=== PATIENT | female | born 1930 | race American Indian/Alaskan Native ===

== ENCOUNTER 2016-05-26 08:01 | Emergency (ER) | payer MEDICARE ==
[2016-05-26] MEDS ORDERED: NORCO 5/325 ONE (09:48)
[2016-05-26] MEDS ORDERED: NORCO 5/325 PO ONE (09:52)
--- NOTE | 2016-05-26 10:35 | XRay Report ---
Left hip 2 views: History: Left hip pain status post fall. Findings: Total hip replacement noted. The acetabula and the femoral component is anatomic and in alignment. No evidence of acute fracture. Impression: No evidence of acute fracture or dislocation.
[2016-05-26 12:03] VITALS: BP 163/59
[2016-05-26 13:17] LABS: Basophils % (Auto) 0.3 % (0.0-1.8); Eosinophils % (Auto) 1.1 % (0.0-4.3); Hematocrit 35.7 % (30.3-42.9); Hemoglobin 11.6 gm/dl (10.1-14.3); Mean Corpuscular HGB Conc 33 % (30-34); Mean Corpuscular Hemoglobin 31 pg (28-32); Mean Corpuscular Volume 94 fl (79-97); Platelet Count 256 K/mm3 (140-440); Red Blood Count 3.81 M/mm3 (3.65-5.03); Red Cell Distribution Width 17.1 % (13.2-15.2); White Blood Count 13.7 K/mm3 (4.5-11.0)
--- NOTE | 2016-05-26 13:23 | Emergency Department Report ---
ED General Adult HPI - General Chief complaint: Fall Stated complaint: LEFT HIP INJURY/DUE TO FALL Time Seen by Provider: 05/26/16 12:00 Source: patient, family Mode of arrival: Wheelchair Limitations: Physical Limitation - History of Present Illness Initial comments: The patient stated that she attempted to get out of bed this morning and "my left leg gave out". She complains of discomfort in the lateral aspect of her left hip. She has had previous hip replacement on that side. She does not complain of any other injury. She denies any prodromal symptoms. She was able to ambulate after the fall. -: Gradual Location: left, lower extremity Quality: dull Consistency: now resolved (improved after analgesia here) Improves with: none Worsens with: none Associated Symptoms: denies other symptoms - Related Data Home Medications Medication Instructions Recorded Confirmed Last Taken Ferrous Sulfate [Feosol] 325 mg PO QDAY 05/26/16 05/26/16 Unknown Hyoscyamine Sulfate [Hyoscyamine 0.125 mg PO Q4H PRN 05/26/16 05/26/16 Unknown Rapdis 0.125 mg] Lisinopril [Zestril] 5 mg PO QDAY 05/26/16 05/26/16 Unknown Memantine HCl [Namenda Xr] 28 mg PO DAILY 05/26/16 05/26/16 Unknown Promethazine [Phenergan TAB] 25 mg PO Q6HR PRN 05/26/16 05/26/16 Unknown predniSONE [Deltasone] 5 mg PO QDAY 05/26/16 05/26/16 Unknown Previous Rx's Medication Instructions Recorded Last Taken Type Omeprazole [PriLOSEC] 40 mg PO QDAY #30 capsule. 08/18/15 Unknown Rx Allergies Allergy/AdvReac Type Severity Reaction Status Date / Time No Known Allergies Allergy Verified 05/26/16 08:23 ED Review of Systems ROS: Stated complaint: LEFT HIP INJURY/DUE TO FALL Other details as noted in HPI Comment: All other systems reviewed and negative Constitutional: denies: chills, fever Respiratory: denies: cough, shortness of breath, wheezing Cardiovascular: denies: chest pain, palpitations Gastrointestinal: denies: abdominal pain, nausea, diarrhea ED Past Medical Hx - Past Medical History Hx Hypertension: Yes Hx GERD: Yes Hx Arthritis: Yes Additional medical history: ALZHEIMERS (BEGINNING). GLAUCOMA - Surgical History Hx Cholecystectomy: Yes Hx Appendectomy: Yes Additional Surgical History: HYSTERECTOMY. STOMACH SURGERY FOR ULCERS. LEFT THIGH SURGERY. LEFT HIP REPLACEMENT - Social History Smoking Status: Never Smoker Substance Use Type: None - Medications Home Medications: Home Medications Medication Instructions Recorded Confirmed Last Taken Type Omeprazole [PriLOSEC] 40 mg PO QDAY #30 capsule. 08/18/15 05/26/16 Unknown Rx Ferrous Sulfate [Feosol] 325 mg PO QDAY 05/26/16 05/26/16 Unknown History Hyoscyamine Sulfate [Hyoscyamine 0.125 mg PO Q4H PRN 05/26/16 05/26/16 Unknown History Rapdis 0.125 mg] Lisinopril [Zestril] 5 mg PO QDAY 05/26/16 05/26/16 Unknown History Memantine HCl [Namenda Xr] 28 mg PO DAILY 05/26/16 05/26/16 Unknown History Promethazine [Phenergan TAB] 25 mg PO Q6HR PRN 05/26/16 05/26/16 Unknown History predniSONE [Deltasone] 5 mg PO QDAY 05/26/16 05/26/16 Unknown History ED Physical Exam - General Limitations: Physical Limitation General appearance: alert, in no apparent distress - Head Head exam: Present: atraumatic, normocephalic - Eye Eye exam: Present: normal appearance. Absent: scleral icterus - ENT ENT exam: Present: normal exam, mucous membranes moist - Neck Neck exam: Present: normal inspection. Absent: tenderness, meningismus - Respiratory Respiratory exam: Present: normal lung sounds bilaterally. Absent: respiratory distress - Cardiovascular Cardiovascular Exam: Present: regular rate, normal rhythm. Absent: systolic murmur, diastolic murmur, rubs, gallop - GI/Abdominal GI/Abdominal exam: Present: soft, normal bowel sounds. Absent: distended, tenderness, guarding, rebound, rigid - Extremities Exam Extremities exam: Present: normal inspection, full ROM (range of motion of the left hip is actually fairly good and nontender. There is no deformity. There is no tenderness over the pelvis as well.), normal capillary refill. Absent: joint swelling, calf tenderness - Back Exam Back exam: Present: normal inspection. Absent: CVA tenderness (R), CVA tenderness (L), muscle spasm, paraspinal tenderness, vertebral tenderness - Neurological Exam Neurological exam: Present: alert, oriented X3, CN II-XII intact. Absent: motor sensory deficit - Psychiatric Psychiatric exam: Present: normal affect, normal mood - Skin Skin exam: Present: warm, dry, intact, normal color. Absent: rash ED Course Vital Signs 05/26/16 05/26/16 05/26/16 08:14 09:53 10:53 Temperature 97.6 F Pulse Rate 60 Respiratory 19 20 19 Rate Blood Pressure 168/71 Blood Pressure [Right] O2 Sat by Pulse 97 Oximetry 05/26/16 12:03 Temperature Pulse Rate 54 L Respiratory 18 Rate Blood Pressure Blood Pressure 163/59 [Right] O2 Sat by Pulse 100 Oximetry ED Medical Decision Making - Lab Data Result diagrams: 05/26/16 12:44 05/26/16 12:44 Laboratory Results - last 24 hr 05/26/16 12:44 WBC 13.7 H RBC 3.81 Hgb 11.6 Hct 35.7 MCV 94 MCH 31 MCHC 33 RDW 17.1 H Plt Count 256 Lymph % (Auto) 17.6 [place] % (Auto) 6.6 Eos % (Auto) 1.1 Baso % (Auto) 0.3 Lymph # 2.4 [place] # 0.9 H Eos # 0.1 Baso # 0.0 Seg Neutrophils % 74.4 H Seg Neutrophils # 10.2 H Laboratory Results - last 24 hr 05/26/16 05/26/16 05/26/16 12:44 12:44 13:08 WBC 13.7 H RBC 3.81 Hgb 11.6 Hct 35.7 MCV 94 MCH 31 MCHC 33 RDW 17.1 H Plt Count 256 Lymph % (Auto) 17.6 [place] % (Auto) 6.6 Eos % (Auto) 1.1 Baso % (Auto) 0.3 Lymph # 2.4 [place] # 0.9 H Eos # 0.1 Baso # 0.0 Seg Neutrophils % 74.4 H Seg Neutrophils # 10.2 H Sodium 139 Potassium 3.6 Chloride 103.6 Carbon Dioxide 24 Anion Gap 15 BUN 13 Creatinine 0.5 L Estimated GFR > 60 BUN/Creatinine Ratio 26.00 Glucose 75 Calcium 8.5 Urine Color Yellow Urine Turbidity Clear Urine pH 6.0 Ur Specific [place] 1.015 Urine Protein <15 mg/dl Urine Glucose (UA) Negative Urine Ketones Negative Urine Blood Negative Urine Nitrite Negative Urine Bilirubin Negative Urine Urobilinogen < 2.0 Ur Leukocyte Esterase Negative Urine WBC (Auto) 2.0 Urine RBC (Auto) 1.0 U Epithel Cells (Auto) < 1.0 Urine Mucus Few Critical care attestation.: If time is entered above; I have spent that time in minutes in the direct care of this critically ill patient, excluding procedure time. ED Disposition Clinical Impression: Contusion of hip, left Qualifiers: Encounter type: initial encounter Qualified Code(s): S70.02XA - Contusion of left hip, initial encounter S/P hip replacement Qualifiers: Laterality: left Qualified Code(s): Z96.642 - Presence of left artificial hip joint Disposition: DISCHARGED TO HOME OR SELFCARE Is pt being admited?: No Does the pt Need Aspirin: No Condition: Stable Instructions: Contusion in Adults (ED) Additional Instructions: Follow-up with orthopedist. Return any acute change or problem. Referrals: CHESTER CRUZ MD [Primary Care Provider] - 3-5 Days KAYLA PAVON MD [Staff Physician] - 3-5 Days Time of Disposition: 14:24
[2016-05-26 13:27] LABS: Anion Gap 15 mmol/L; Blood Urea Nitrogen 13 mg/dL (7-17); Calcium 8.5 mg/dL (8.4-10.2); Carbon Dioxide 24 mmol/L (22-30); Chloride 103.6 mmol/L (98-107); Glucose 75 mg/dL (65-100); Potassium 3.6 mmol/L (3.6-5.0); Sodium 139 mmol/L (137-145)
[2016-05-26 13:32] LABS: Bilirubin,Urine Negative (Negative); Blood,Urine Negative (Negative); Ketones,Urine Negative (Negative); Leukocyte Esterase,Urine Negative (Negative); Nitrite,Urine Negative (Negative); Protein,Urine <15 mg/dL mg/dL (Negative); Urobilinogen,Urine < 2.0 mg/dL (<2.0)
[2016-05-26 13:33] LABS: Mucus,Urine Few /HPF
== END 2016-05-26 13:13 | disposition home or self-care (01) ==
LOC: ED 08:01
DX: S70.02XA Contusion of left hip, initial encounter (principal); I10 Essential (primary) hypertension; K21.9 Gastro-esophageal reflux disease without esophagitis; M19.90 Unspecified osteoarthritis, unspecified site; G30.9 Alzheimer's disease, unspecified; F02.80 Dementia in other diseases classified elsewhere, unspecified severity, without behavioral disturbance, psychotic disturbance, mood disturbance, and anxiety; F05 Delirium due to known physiological condition; Z96.642 Presence of left artificial hip joint; W19.XXXA Unspecified fall, initial encounter; Y93.89 Activity, other specified; Y99.9 Unspecified external cause status; Y92.89 Other specified places as the place of occurrence of the external cause
CPT/HCPCS: 36415; 80048; 81001; 85025

== ENCOUNTER 2018-04-16 14:58 | Inpatient (IN) | payer MEDICARE ==
--- NOTE | 2018-04-16 16:27 | Emergency Department Report ---
ED Dizziness HPI - General Chief Complaint: Syncope Stated Complaint: LOW HEART RATE Time Seen by Provider: 04/16/18 15:50 Source: family, EMS Mode of arrival: Wheelchair Limitations: No Limitations - History of Present Illness Initial Comments: Patient is a 88-year-old female with history of hypertension and dementia. Patient was sent from her primary care physician office for evaluation of dizziness and knee onset bradycardia. The patient daughter stated that patient was doing well until 3 to 4 days ago when she started having dizziness and some syncopal episodes. Patient also complaining of headache. There is stated that her blood pressure was high also. Patient denied any focal weakness, numbness or tingling sensation. Patient denied any chest pain or shortness of breath. Patient had a negative cardiac cath in 2016. MD Complaint: dizziness, lightheadedness -: days(s) Timing: gradual onset Description: sense of movement, lightheadedness History of Trauma: No Severity: moderate Improves With: remaining still Worsens With: movement Associated Symptoms: denies other symptoms - Related Data Home Medications Medication Instructions Recorded Confirmed Last Taken Ferrous Sulfate [Feosol] 325 mg PO QDAY 05/26/16 05/26/16 Unknown Hyoscyamine Sulfate [Hyoscyamine 0.125 mg PO Q4H PRN 05/26/16 05/26/16 Unknown Rapdis 0.125 mg] Lisinopril [Zestril] 5 mg PO QDAY 05/26/16 05/26/16 Unknown Memantine HCl [Namenda Xr] 28 mg PO DAILY 05/26/16 05/26/16 Unknown Promethazine [Phenergan TAB] 25 mg PO Q6HR PRN 05/26/16 05/26/16 Unknown predniSONE [Deltasone] 5 mg PO QDAY 05/26/16 05/26/16 Unknown Previous Rx's Medication Instructions Recorded Last Taken Type Omeprazole [PriLOSEC] 40 mg PO QDAY #30 capsule. 08/18/15 Unknown Rx traMADol [Ultram] 50 mg PO Q8HR PRN #10 tablet 05/26/16 Unknown Rx Allergies Allergy/AdvReac Type Severity Reaction Status Date / Time No Known Allergies Allergy Verified 05/26/16 08:23 ED Review of Systems ROS: Stated complaint: LOW HEART RATE Other details as noted in HPI Comment: All other systems reviewed and negative Constitutional: denies: chills, fever Respiratory: denies: cough, orthopnea, shortness of breath, SOB with exertion Cardiovascular: denies: chest pain, palpitations Gastrointestinal: denies: abdominal pain, nausea, vomiting Neurological: vertigo. denies: headache, weakness ED Past Medical Hx - Past Medical History Previous Medical History?: Yes Hx Hypertension: Yes Hx GERD: Yes Hx Arthritis: Yes Additional medical history: ALZHEIMERS (BEGINNING). GLAUCOMA - Surgical History Past Surgical History?: Yes Hx Cholecystectomy: Yes Hx Appendectomy: Yes Additional Surgical History: HYSTERECTOMY. STOMACH SURGERY FOR ULCERS - COLOSTOMY. LEFT THIGH SURGERY. LEFT HIP REPLACEMENT - Social History Smoking Status: Never Smoker Substance Use Type: None - Medications Home Medications: Home Medications Medication Instructions Recorded Confirmed Last Taken Type Omeprazole [PriLOSEC] 40 mg PO QDAY #30 capsule. 08/18/15 05/26/16 Unknown Rx Ferrous Sulfate [Feosol] 325 mg PO QDAY 05/26/16 05/26/16 Unknown History Hyoscyamine Sulfate [Hyoscyamine 0.125 mg PO Q4H PRN 05/26/16 05/26/16 Unknown History Rapdis 0.125 mg] Lisinopril [Zestril] 5 mg PO QDAY 05/26/16 05/26/16 Unknown History Memantine HCl [Namenda Xr] 28 mg PO DAILY 05/26/16 05/26/16 Unknown History Promethazine [Phenergan TAB] 25 mg PO Q6HR PRN 05/26/16 05/26/16 Unknown History predniSONE [Deltasone] 5 mg PO QDAY 05/26/16 05/26/16 Unknown History traMADol [Ultram] 50 mg PO Q8HR PRN #10 tablet 05/26/16 Unknown Rx ED Physical Exam - General Limitations: No Limitations General appearance: alert, in no apparent distress - Head Head exam: Present: atraumatic, normocephalic, normal inspection - Eye Eye exam: Present: normal appearance - ENT ENT exam: Present: normal exam, normal orophraynx, mucous membranes moist - Neck Neck exam: Present: normal inspection, full ROM. Absent: tenderness, meningismus, lymphadenopathy, thyromegaly - Respiratory Respiratory exam: Present: normal lung sounds bilaterally. Absent: respiratory distress, wheezes, rales, rhonchi, chest wall tenderness, accessory muscle use, decreased breath sounds, prolonged expiratory - Cardiovascular Cardiovascular Exam: Present: regular rate, normal rhythm, normal heart sounds - GI/Abdominal GI/Abdominal exam: Present: soft, normal bowel sounds. Absent: distended, tenderness, guarding, rebound, rigid, organomegaly, mass, bruit, pulsatile mass, hernia - Extremities Exam Extremities exam: Present: normal inspection, full ROM, normal capillary refill. Absent: pedal edema, calf tenderness - Back Exam Back exam: Present: normal inspection, full ROM. Absent: tenderness, CVA tenderness (R), CVA tenderness (L), muscle spasm, paraspinal tenderness, vertebral tenderness - Neurological Exam Neurological exam: Present: alert, oriented X3, CN II-XII intact - Psychiatric Psychiatric exam: Present: normal mood - Skin Skin exam: Present: warm, intact ED Course Vital Signs 04/16/18 04/16/18 04/16/18 15:12 15:18 15:30 Pulse Rate 43 L 43 L 42 L Respiratory 17 16 10 L Rate Blood Pressure 186/69 186/69 O2 Sat by Pulse 100 100 Oximetry 04/16/18 04/16/18 04/16/18 15:46 16:00 16:15 Pulse Rate 43 L Respiratory 13 Rate Blood Pressure 163/88 163/88 170/59 O2 Sat by Pulse 100 100 98 Oximetry ED Medical Decision Making - Lab Data Result diagrams: 04/16/18 18:26 04/16/18 18:26 - EKG Data -: EKG Interpreted by Pa EKG shows normal: sinus rhythm Rate: bradycardia - EKG Data 04/16/18 16:36 Sinus bradycardia, no ST elevation. - Radiology Data Radiology results: report reviewed Referring Physician: MICHAEL FAN Patient Name: JAYSHREE KRISHNA Date of : 1930 Sex: Female Report Date: 2018-04-16 Report Status: Finalized Findings [facility] [address] [place] [address] Cat Scan Report Signed Patient: JAYSHREE KRISHNA MR#: [id number] : 1930 Acct:[id number] Age/Sex: 88 / F ADM Date: 04/16/18 Loc: ED Attending Dr: Ordering Physician: MICHAEL FAN Date of Service: 04/16/18 Procedure(s): CT head/brain wo con Accession Number(s): [id number] cc: MICHAEL FAN FINAL REPORT EXAM: CT HEAD/BRAIN WO CON HISTORY: Syncope TECHNIQUE: 2.5 millimeter axial images from the skullbase to the vertex. Comparison: Head CT dated March 21, 2015 FINDINGS: There is no evidence of an acute intracranial process, intracranial hemorrhage or mass effect. Ventricular size is concordant with the degree of atrophy. There is prominence of the extra-axial spaces anterior to the frontal lobes bilaterally similar in appearance to the previous study. There is atherosclerotic vascular calcification of the internal carotid arteries and vertebral arteries bilaterally at the skullbase. The visualized portions of the orbits, paranasal and mastoid sinuses are notable for a nonspherical shape of the globes bilaterally. The bony structures are unremarkable. There is no evidence of fracture. IMPRESSION: 1. No evidence of an acute intracranial process, intracranial hemorrhage or mass effect. No significant change since previous study dated March 21, 2015. Transcribed By: ED Dictated By: ZOEY GODWIN MD Electronically Authenticated By: ZOEY GODWIN MD Signed Date/Time: 04/16/18 175 Referring Physician: MICHAEL FAN Patient Name: JAYSHREE KRISHNA Date of : 1930 Sex: Female Report Date: 2018-04-16 Report Status: Finalized Findings [address] [address] XRay Report Signed Patient: JAYSHREE KRISHNA MR#: [id number] : 1930 Acct:[id number] Age/Sex: 88 / F ADM Date: 04/16/18 Loc: ED Attending Dr: Ordering Physician: MICHAEL FAN Date of Service: 04/16/18 Procedure(s): XR chest 1V ap Accession Number(s): [id number] cc: MICHAEL FAN Fluoro Time In Minutes: FINAL REPORT EXAM: XR CHEST 1V AP HISTORY: syncope TECHNIQUE: Frontal portable view of the chest Comparison: None FINDINGS: There is no evidence of infiltrate, pneumothorax or pleural fluid collection. The cardiac silhouette is enlarged. The thoracic aorta is tortuous with atherosclerotic vascular calcification. There are calcified lymph nodes in the right hilum consistent with chronic granulomatous change. Surgical clips are demonstrated in the region the gastroesophageal junction. The bony structures are notable for marked degenerative change of the shoulder joints bilaterally. IMPRESSION: 1. No evidence of an acute pulmonary process. 2. Enlarged cardiac silhouette. 3. Tortuosity thoracic aorta with atherosclerotic vascular calcification. 4. Postsurgical change in the region of the gastroesophageal junction. 5. Marked degenerative change shoulder joints bilaterally. Transcribed By: ED Dictated By: ZOEY GODWIN MD Electronically Authenticated By: ZOEY GODWIN MD Signed Date/Time: 04/16/181745 DD/ 43 TD/TT: 04/16/181743 DD/ 49 TD/TT: 04/16/181749 - Medical Decision Making Patient is a 88-year-old female with history of hypertension and dementia. Patient was sent from her primary care physician office for evaluation of dizziness and knee onset bradycardia. The patient daughter stated that patient was doing well until 3 to 4 days ago when she started having dizziness and some syncopal episodes. Patient also complaining of headache. There is stated that her blood pressure was high also. Patient denied any focal weakness, numbness or tingling sensation. Patient denied any chest pain or shortness of breath. Patient had a negative cardiac cath in 2016. Patient did not experience any dizziness in the emergency room. EKG showed sinus bradycardia with a rate of 43. Patient CT brain is negative for acute finding. First set of troponin is negative. I discussed the patient with distribution superintendent , was advised to admit the patient to the hospital and he will follow-up with the patient. I discussed the patient is Dr. Mendoza, he agreed to admit the patient to medical service and advised to bridge the patient to telemetry. Critical Care Time: Yes Critical care time in (mins) excluding proc time.: 30 Critical care attestation.: If time is entered above; I have spent that time in minutes in the direct care of this critically ill patient, excluding procedure time. ED Disposition Clinical Impression: Dizziness, Symptomatic bradycardia Disposition: -09 OP ADMIT IP TO THIS HOSP Is pt being admited?: Yes Condition: Stable Referrals: PRIMARY CARE, [Referring] - 3-5 Days
--- NOTE | 2018-04-16 17:46 | XRay Report ---
FINAL REPORT EXAM: XR CHEST 1V AP HISTORY: syncope TECHNIQUE: Frontal portable view of the chest Comparison: None FINDINGS: There is no evidence of infiltrate, pneumothorax or pleural fluid collection. The cardiac silhouette is enlarged. The thoracic aorta is tortuous with atherosclerotic vascular calcification. There are calcified lymph nodes in the right hilum consistent with chronic granulomatous change. Surgical clips are demonstrated in the region the gastroesophageal junction. The bony structures are notable for marked degenerative change of the shoulder joints bilaterally. IMPRESSION: 1. No evidence of an acute pulmonary process. 2. Enlarged cardiac silhouette. 3. Tortuosity thoracic aorta with atherosclerotic vascular calcification. 4. Postsurgical change in the region of the gastroesophageal junction. 5. Marked degenerative change shoulder joints bilaterally.
--- NOTE | 2018-04-16 17:51 | Cat Scan Report ---
FINAL REPORT EXAM: CT HEAD/BRAIN WO CON HISTORY: Syncope TECHNIQUE: 2.5 millimeter axial images from the skullbase to the vertex. Comparison: Head CT dated March 21, 2015 FINDINGS: There is no evidence of an acute intracranial process, intracranial hemorrhage or mass effect. Ventricular size is concordant with the degree of atrophy. There is prominence of the extra-axial spaces anterior to the frontal lobes bilaterally similar in ap pearance to the previous study. There is atherosclerotic vascular calcification of the internal carotid arteries and vertebral arteri es bilaterally at the skullbase. The visualized portions of the orbits, paranasal and mastoid sinuses are notable for a nonspherical s hape of the globes bilaterally. The bony structures are unremarkable. There is no evidence of fracture. IMPRESSION: 1. No evidence of an acute intracranial process, intracranial hemorrhage or mass effect. No significant change since previous study dated March 21, 2015.
[2018-04-16 18:39] LABS: Basophils # (Auto) 0.2 K/mm3 (0.0-0.1); Basophils % (Auto) 1.8 % (0.0-1.8); Eosinophils # (Auto) 0.2 K/mm3 (0.0-0.4); Eosinophils % (Auto) 2.2 % (0.0-4.3); Hematocrit 38.6 % (30.3-42.9); Hemoglobin 12.7 gm/dl (10.1-14.3); Lymphocytes # (Auto) 1.8 K/mm3 (1.2-5.4); Mean Corpuscular HGB Conc 33 % (30-34); Mean Corpuscular Volume 99 fl (79-97); Monocytes # (Auto) 0.8 K/mm3 (0.0-0.8); Monocytes % (Auto) 9.7 % (0.0-7.3); Platelet Count 172 K/mm3 (140-440); Red Blood Count 3.92 M/mm3 (3.65-5.03); Red Cell Distribution Width 14.1 % (13.2-15.2)
[2018-04-16 18:47] LABS: INR 0.99 (0.87-1.13)
[2018-04-16 18:48] LABS: Partial Thromboplastin Time 28.6 Sec. (24.2-36.6)
[2018-04-16 18:55] LABS: BUN/Creatinine Ratio 16; Blood Urea Nitrogen 16 mg/dL (7-17); Calcium 9.7 mg/dL (8.4-10.2); Hemolysis Index 6
[2018-04-16 18:58] LABS: Alanine Aminotransferase 55 units/L (7-56); Albumin 3.8 g/dL (3.9-5)
[2018-04-16 19:03] LABS: Bilirubin,Direct < 0.2 mg/dL (0-0.2)
--- NOTE | 2018-04-16 22:00 | History and Physical Report ---
History of Present Illness Date of examination: 04/16/18 Date of admission: 04/16/18 19:26 Chief complaint: Feeling weak dizzy and passing out for the last 4 days History of present illness: 88-year-old -Serbian female with history of hypertension and dementia and being treated for bradycardia comes in for dizziness for 4 days. Patient has been feeling weak and dizzy and passing out. Patient is seeing [facility]--Dr. SWANSON for management of bradycardia. Patient was given the option of pacemaker but the patient did not want it. Patient has been doing well until 4 days ago. Since 4 days patient has been feeling dizzy and weak and passing out. No chest pain. Past Medical History Previous Medical History?: Yes Hypertension: Yes GERD: Yes Arthritis: Yes Additional medical history: ALZHEIMERS (BEGINNING). GLAUCOMA Surgical History Past Surgical History?: Yes Hx Cholecystectomy: Yes Hx Appendectomy: Yes Additional Surgical History: HYSTERECTOMY. STOMACH SURGERY FOR ULCERS - COLOSTOMY. LEFT THIGH SURGERY. LEFT HIP REPLACEMENT Social History Smoking Status: Never Smoker Substance Use Type: None Family history Hypertension - Medications Home Medications: Home Medications Medication Instructions Recorded Confirmed Last Taken Type Omeprazole [PriLOSEC] 40 mg PO QDAY #30 capsule. 08/18/15 05/26/16 Unknown Rx Ferrous Sulfate [Feosol] 325 mg PO QDAY 05/26/16 05/26/16 Unknown History Hyoscyamine Sulfate [Hyoscyamine 0.125 mg PO Q4H PRN 05/26/16 05/26/16 Unknown History Rapdis 0.125 mg] Lisinopril [Zestril] 5 mg PO QDAY 05/26/16 05/26/16 Unknown History Memantine HCl [Namenda Xr] 28 mg PO DAILY 05/26/16 05/26/16 Unknown History Promethazine [Phenergan TAB] 25 mg PO Q6HR PRN 05/26/16 05/26/16 Unknown History predniSONE [Deltasone] 5 mg PO QDAY 05/26/16 05/26/16 Unknown History traMADol [Ultram] 50 mg PO Q8HR PRN #10 tablet 05/26/16 Unknown Rx Review of systems ROS: Stated complaint: LOW HEART RATE Other details as noted in HPI Comment: All other systems reviewed and negative Constitutional: denies: chills, fever Respiratory: denies: cough, orthopnea, shortness of breath, SOB with exertion Cardiovascular: denies: chest pain, palpitations Gastrointestinal: denies: abdominal pain, nausea, vomiting Neurological: vertigo. denies: headache, weakness Medications and Allergies Allergies Allergy/AdvReac Type Severity Reaction Status Date / Time No Known Allergies Allergy Verified 05/26/16 08:23 Home Medications Medication Instructions Recorded Confirmed Last Taken Type Omeprazole [PriLOSEC] 40 mg PO QDAY #30 capsule. 08/18/15 05/26/16 Unknown Rx Ferrous Sulfate [Feosol] 325 mg PO QDAY 05/26/16 05/26/16 Unknown History Hyoscyamine Sulfate [Hyoscyamine 0.125 mg PO Q4H PRN 05/26/16 05/26/16 Unknown History Rapdis 0.125 mg] Lisinopril [Zestril] 5 mg PO QDAY 05/26/16 05/26/16 Unknown History Memantine HCl [Namenda Xr] 28 mg PO DAILY 05/26/16 05/26/16 Unknown History Promethazine [Phenergan TAB] 25 mg PO Q6HR PRN 05/26/16 05/26/16 Unknown History predniSONE [Deltasone] 5 mg PO QDAY 05/26/16 05/26/16 Unknown History traMADol [Ultram] 50 mg PO Q8HR PRN #10 tablet 05/26/16 Unknown Rx Exam - Constitutional Vitals: Temp Pulse Resp BP Pulse Ox 97.6 F 44 L 16 168/64 96 04/16/18 20:52 04/16/18 20:52 04/16/18 20:52 04/16/18 20:52 04/16/18 20:52 General appearance: Present: no acute distress, well-nourished - EENT Eyes: Present: PERRL ENT: hearing intact, clear oral mucosa - Neck Neck: Present: supple, normal ROM - Respiratory Respiratory effort: normal Respiratory: bilateral: CTA - Cardiovascular Heart rate: 43 Rhythm: regular Heart Sounds: Present: S1 & S2. Absent: rub, click - Extremities Extremities: no ischemia, pulses intact, pulses symmetrical, No edema Peripheral Pulses: within normal limits - Abdominal General gastrointestinal: Present: soft, non-tender, non-distended, normal bowel sounds Female genitourinary: Present: normal - Integumentary Integumentary: Present: clear, warm, dry - Musculoskeletal Musculoskeletal: gait normal, strength equal bilaterally - Psychiatric Psychiatric: appropriate mood/affect, intact judgment & insight - Neurologic Neurologic: CNII-XII intact, moves all extremities - Allied Health Allied health notes reviewed: nursing, case management Results - Labs CBC & Chem 7: 04/16/18 18:26 04/16/18 18: Labs: Laboratory Last Values WBC 8.4 K/mm3 (4.5-11.0) 04/16/18 18: RBC 3.92 M/mm3 (3.65-5.03) 04/16/18 18: Hgb 12.7 gm/dl (10.1-14.3) 04/16/18 18: Hct 38.6 % (30.3-42.9) 04/16/18 18: MCV 99 fl (79-97) H 04/16/18 18: MCH 32 pg (28-32) 04/16/18 18: MCHC 33 % (30-34) 04/16/18 18: RDW 14.1 % (13.2-15.2) 04/16/18 18: Plt Count 172 K/mm3 (140-440) 04/16/18 18: Lymph % (Auto) 21.0 % (13.4-35.0) 04/16/18 18: [place] % (Auto) 9.7 % (0.0-7.3) H 04/16/18 18: Eos % (Auto) 2.2 % (0.0-4.3) 04/16/18 18: Baso % (Auto) 1.8 % (0.0-1.8) 04/16/18 18: Lymph # 1.8 K/mm3 (1.2-5.4) 04/16/18 18: [place] # 0.8 K/mm3 (0.0-0.8) 04/16/18 18: Eos # 0.2 K/mm3 (0.0-0.4) 04/16/18 18: Baso # 0.2 K/mm3 (0.0-0.1) H 04/16/18 18: Seg Neutrophils % 65.3 % (40.0-70.0) 04/16/18 18:26 Seg Neutrophils # 5.5 K/mm3 (1.8-7.7) 04/16/18 18:26 PT 13.7 Sec. (12.2-14.9) 04/16/18 18:26 INR 0.99 (0.87-1.13) 04/16/18 18:26 APTT 28.6 Sec. (24.2-36.6) 04/16/18 18:26 Sodium 144 mmol/L (137-145) 04/16/18 18:26 Potassium 4.1 mmol/L (3.6-5.0) 04/16/18 18:26 Chloride 108.1 mmol/L (98-107) H 04/16/18 18:26 Carbon Dioxide 22 mmol/L (22-30) 04/16/18 18:26 Anion Gap 18 mmol/L 04/16/18 18:26 BUN 16 mg/dL (7-17) 04/16/18 18:26 Creatinine 1.0 mg/dL (0.7-1.2) 04/16/18 18:26 Estimated GFR > 60 ml/min 04/16/18 18:26 BUN/Creatinine Ratio 16 % 04/16/18 18:26 Glucose 90 mg/dL (65-100) 04/16/18 18:26 Calcium 9.7 mg/dL (8.4-10.2) 04/16/18 18:26 Magnesium 1.70 mg/dL (1.7-2.3) 04/16/18 18:26 Total Bilirubin 0.30 mg/dL (0.1-1.2) 04/16/18 18:26 Direct Bilirubin < 0.2 mg/dL (0-0.2) 04/16/18 18:26 Indirect Bilirubin 0.1 mg/dL 04/16/18 18:26 AST 41 units/L (5-40) H 04/16/18 18:26 ALT 55 units/L (7-56) 04/16/18 18:26 Alkaline Phosphatase 46 units/L (35-129) 04/16/18 18:26 Troponin T < 0.010 ng/mL (0.00-0.029) 04/16/18 18:26 Total Protein 6.9 g/dL (6.3-8.2) 04/16/18 18:26 Albumin 3.8 g/dL (3.9-5) L 04/16/18 18:26 Albumin/Globulin Ratio 1.2 % 04/16/18 18:26 Short CBC 04/16/18 Range/Units 18:26 WBC 8.4 (4.5-11.0) K/mm3 Hgb 12.7 (10.1-14.3) gm/dl Hct 38.6 (30.3-42.9) % Plt Count 172 (140-440) K/mm3 BMP 04/16/18 18:26 Sodium 144 Potassium 4.1 Chloride 108.1 H Carbon Dioxide 22 BUN 16 Creatinine 1.0 Glucose 90 Calcium 9.7 Cardiac Enzymes 04/16/18 Range/Units 18:26 Troponin T < 0.010 (0.00-0.029) ng/mL Liver Function 04/16/18 Range/Units 18:26 Total Bilirubin 0.30 (0.1-1.2) mg/dL Direct Bilirubin < 0.2 (0-0.2) mg/dL AST 41 H (5-40) units/L ALT 55 (7-56) units/L Alkaline Phosphatase 46 (35-129) units/L Albumin 3.8 L (3.9-5) g/dL - Imaging and Cardiology EKG: report reviewed (sinus bradycardia heart rate of 43 per minute) Assessment and Plan Advance Directives: Yes (full code) VTE prophylaxis?: Chemical Plan of care discussed with patient/family: Yes - Patient Problems (1) Symptomatic bradycardia Current Visit: Yes Status: Acute Plan to address problem: Patient may need pacemaker and defibrillator We will consult [facility] Patient follows with them IV fluids for now (2) Hypertension Current Visit: Yes Status: Chronic Qualifiers: Hypertension type: essential hypertension Qualified Code(s): I10 - Essential (primary) hypertension Plan to address problem: Continue lisinopril No beta blockers Check TSH (3) Dementia Current Visit: Yes Status: Chronic Qualifiers: Dementia type: vascular dementia Plan to address problem: Continue Namenda (4) GERD (gastroesophageal reflux disease) Current Visit: Yes Status: Chronic Qualifiers: Esophagitis presence: without esophagitis Qualified Code(s): K21.9 - Gastro-esophageal reflux disease without esophagitis Plan to address problem: Continue PPIs (5) DVT prophylaxis Current Visit: Yes Status: Acute Plan to address problem: Patient on Lovenox and GI prophylaxis in the form of EPS
[2018-04-16] MEDS ORDERED: PERCOCET 5/325 PO PRN (22:05)
[2018-04-16] MEDS ORDERED: SODIUM CHLORIDE FLUSH SYRINGE 10 ML IV PRN (22:05)
[2018-04-16] MEDS ORDERED: DILAUDID IV PRN (22:05)
[2018-04-16] MEDS ORDERED: ZOFRAN IV PRN (22:05)
[2018-04-17 01:17] LABS: Chol/HDL Ratio 2.04 %
[2018-04-17] MEDS: NACL 0.9% 1000 ML 1,000 ML IV SCH ×2 (05:05→18:31)
[2018-04-17 06:29] LABS: Basophils % (Auto) 0.6 % (0.0-1.8); Eosinophils # (Auto) 0.1 K/mm3 (0.0-0.4); Eosinophils % (Auto) 1.5 % (0.0-4.3); Hematocrit 38.3 % (30.3-42.9); Hemoglobin 12.4 gm/dl (10.1-14.3); Lymphocytes # (Auto) 1.3 K/mm3 (1.2-5.4); Lymphocytes % (Auto) 16.8 % (13.4-35.0); Mean Corpuscular HGB Conc 32 % (30-34); Mean Corpuscular Volume 99 fl (79-97); Monocytes # (Auto) 0.5 K/mm3 (0.0-0.8); Monocytes % (Auto) 6.9 % (0.0-7.3); Platelet Count 169 K/mm3 (140-440); Red Blood Count 3.88 M/mm3 (3.65-5.03); Red Cell Distribution Width 14.2 % (13.2-15.2)
[2018-04-17 06:55] LABS: Alanine Aminotransferase 48 units/L (7-56); Albumin 3.4 g/dL (3.9-5); BUN/Creatinine Ratio 23; Blood Urea Nitrogen 18 mg/dL (7-17); Calcium 9.3 mg/dL (8.4-10.2); Hemolysis Index 42
[2018-04-17] MEDS: PROTONIX PO SCH (09:58)
[2018-04-17] MEDS: ZESTRIL PO SCH (09:58)
[2018-04-17] MEDS: TYLENOL PO PRN (09:59)
[2018-04-17] MEDS: SODIUM CHLORIDE FLUSH SYRINGE 10 ML IV SCH ×2 (10:05→21:35)
[2018-04-17] MEDS: NAMENDA PO SCH ×2 (10:05→21:35)
--- NOTE | 2018-04-17 12:00 | Consultation ---
Addendum entered and electronically signed by ROMARIO HER MD 04/17/18 14:05: We'll add Procardia XL 30 mg daily for blood pressure management. On discharge, she may benefit from extended outpatient event monitor. Original Note: History of Present Illness Consult date: 04/17/18 Consult reason: bradycardia History of present illness: Patient is an 88 year old woman who was sent from her primary care office with uncontrolled hypertension, weakness and marked sinus bradycardia. No acute intracranial abnormalities by head CT scan. Chest x-ray is negative. On presentation, a repeat ECG is sinus bradycardia with a right bundle branch block, rate 43. Home medications does not list any AV yair blocking agents. Currently sinus rhythm, rate 86 on telemetry. There are no pauses seen. TSH is normal. Cardiac consultation was requested. Patient is known to [facility] and is followed routinely with Dr Lipscomb. She has a history of hypertension, nonischemic cardiomyopathy, resolving by follow up echocardiogram six months ago that reports a well preserved left ventricular ejection fraction. In addition, she has a history of underlying sick sinus syndrome that's managed conservatively. Medications and Allergies Allergies Allergy/AdvReac Type Severity Reaction Status Date / Time No Known Allergies Allergy Verified 05/26/16 08:23 Home Medications Medication Instructions Recorded Confirmed Last Taken Type Omeprazole [PriLOSEC] 40 mg PO QDAY #30 capsule. 08/18/15 04/17/18 04/16/18 Rx Ferrous Sulfate [Feosol] 325 mg PO QDAY 05/26/16 04/17/18 04/16/18 History Hyoscyamine Sulfate [Hyoscyamine 0.125 mg PO Q4H PRN 05/26/16 04/17/18 Unknown History Rapdis 0.125 mg] Lisinopril [Zestril] 5 mg PO QDAY 05/26/16 04/17/18 04/16/18 History Memantine HCl [Namenda Xr] 28 mg PO DAILY 05/26/16 04/17/18 04/16/18 History Promethazine [Phenergan TAB] 25 mg PO Q6HR PRN 05/26/16 04/17/18 Unknown History predniSONE [Deltasone] 5 mg PO QDAY 05/26/16 04/17/18 04/15/18 History traMADol [Ultram] 50 mg PO Q8HR PRN #10 tablet 05/26/16 04/17/18 Unknown Rx Active Meds: Active Medications Acetaminophen (Tylenol) 650 mg PO Q4H PRN PRN Reason: Pain MILD(1-3)/Fever >100.5/MCNAMARA Last Admin: 04/17/18 09:59 Dose: 650 mg Documented by: Hydromorphone HCl (Dilaudid) 0.5 mg IV Q3H PRN PRN Reason: Pain , Severe (7-10) Sodium Chloride (Nacl 0.9% 1000 Ml) 1,000 mls @ 75 mls/hr IV DIRECT [facility] Last Admin: 04/17/18 05:05 Dose: 75 mls/hr Documented by: Lisinopril (Zestril) 5 mg PO QDAY [facility] Last Admin: 04/17/18 09:58 Dose: 5 mg Documented by: Memantine (Namenda) 10 mg PO Q12HR [facility] Last Admin: 04/17/18 10:05 Dose: 10 mg Documented by: Ondansetron HCl (Zofran) 4 mg IV Q8H PRN PRN Reason: Nausea And Vomiting Oxycodone/Acetaminophen (Percocet 5/325) 1 tab PO Q6H PRN PRN Reason: Pain, Moderate (4-6) Pantoprazole Sodium (Protonix) 40 mg PO QDAY [facility] Last Admin: 04/17/18 09:58 Dose: 40 mg Documented by: Sodium Chloride (Sodium Chloride Flush Syringe 10 Ml) 10 ml IV BID [facility] Last Admin: 04/17/18 10:05 Dose: 10 ml Documented by: Sodium Chloride (Sodium Chloride Flush Syringe 10 Ml) 10 ml IV PRN PRN PRN Reason: LINE FLUSH Physical Examination Vital Signs Pulse Resp BP Pulse Ox 43 L 17 186/69 100 04/16/18 15:12 04/16/18 15:12 04/16/18 15:12 04/16/18 15:12 General appearance: no acute distress HEENT: Positive: PERRL Cardiac: Positive: Reg Rate and Rhythm Lungs: Positive: Decreased Breath Sounds Neuro: Positive: Weakness Extremities: Absent: edema Results 04/17/18 06:10 04/17/18 06:10 Cardiac Enzymes 04/16/18 04/17/18 Range/Units 18:26 06:10 AST 41 H 34 (5-40) units/L Coagulation 04/16/18 Range/Units 18:26 PT 13.7 (12.2-14.9) Sec. INR 0.99 (0.87-1.13) APTT 28.6 (24.2-36.6) Sec. Lipids 04/16/18 Range/Units 22:32 Triglycerides 101 (2-149) mg/dL Cholesterol 202 H (50-199) mg/dL HDL Cholesterol 99 H (40-59) mg/dL Cholesterol/HDL Ratio 2.04 % CBC 04/16/18 04/17/18 Range/Units 18:26 06:10 WBC 8.4 8.0 (4.5-11.0) K/mm3 RBC 3.92 3.88 (3.65-5.03) M/mm3 Hgb 12.7 12.4 (10.1-14.3) gm/dl Hct 38.6 38.3 (30.3-42.9) % Plt Count 172 169 (140-440) K/mm3 Lymph # 1.8 1.3 (1.2-5.4) K/mm3 [place] # 0.8 0.5 (0.0-0.8) K/mm3 Eos # 0.2 0.1 (0.0-0.4) K/mm3 Baso # 0.2 H 0.0 (0.0-0.1) K/mm3 Comprehensive Metabolic Panel 04/16/18 04/16/18 04/17/18 Range/Units 18:26 18:26 06:10 Sodium 144 143 (137-145) mmol/L Potassium 4.1 4.0 (3.6-5.0) mmol/L Chloride 108.1 H 110.7 H (98-107) mmol/L Carbon Dioxide 22 21 L (22-30) mmol/L BUN 16 18 H (7-17) mg/dL Creatinine 1.0 0.8 (0.7-1.2) mg/dL Glucose 90 96 (65-100) mg/dL Calcium 9.7 9.3 (8.4-10.2) mg/dL Direct Bilirubin < 0.2 (0-0.2) mg/dL Indirect Bilirubin 0.1 mg/dL AST 41 H 34 (5-40) units/L ALT 55 48 (7-56) units/L Alkaline Phosphatase 46 43 (35-129) units/L Total Protein 6.9 6.2 L (6.3-8.2) g/dL Albumin 3.8 L 3.4 L (3.9-5) g/dL Assessment and Plan Hypertension Underlying SSS TSH is normal Hx of Nonischemic cardiomyopathy, resolving echocardiogram 08/2017 reports a well preserved left ventricular ejection fraction 55%.
--- NOTE | 2018-04-17 14:38 | Progress Note ---
Assessment and Plan Assessment and plan: Bradycardia - Secondary to sick sinus syndrome - Cardiology is following Hypertension - on lisinopril, cardiology recommended to add Procardia at discharge Cardiomyopathy - Her last ejection fraction was 50-55% - No symptoms of CHF Dementia - Continue home medications DVT prophylaxis - On Lovenox Disposition - Continue patient care, monitor on telemetry History Interval history: Patient was seen and evaluated this morning, patient was alert but demented. No chest pain or shortness of breath. Hospitalist Physical - Physical exam Narrative exam: Not in cardiopulmonary distress. The patient appeared well nourished and normally developed. Vital signs as documented. Head exam is unremarkable. No scleral icterus . Neck is without jugular venous distension, thyromegaly, or carotid bruits. Lungs are clear to auscultation. Cardiac exam reveals regular rate and Rhythm. Abdominal exam reveals normal bowel sounds Extremities are nonedematous and both femoral and pedal pulses are normal. 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 - Constitutional Vitals: Temp Pulse Resp BP Pulse Ox 98.7 F 58 L 18 166/72 99 04/17/18 08:11 04/17/18 08:11 04/17/18 08:11 04/17/18 12:00 04/17/18 08:11 General appearance: Present: no acute distress Results - Labs CBC & Chem 7: 04/17/18 06:10 04/17/18 06:10 Labs: Laboratory Last Values WBC 8.0 K/mm3 (4.5-11.0) 04/17/18 06:10 RBC 3.88 M/mm3 (3.65-5.03) 04/17/18 06:10 Hgb 12.4 gm/dl (10.1-14.3) 04/17/18 06:10 Hct 38.3 % (30.3-42.9) 04/17/18 06:10 MCV 99 fl (79-97) H 04/17/18 06:10 MCH 32 pg (28-32) 04/17/18 06:10 MCHC 32 % (30-34) 04/17/18 06:10 RDW 14.2 % (13.2-15.2) 04/17/18 06:10 Plt Count 169 K/mm3 (140-440) 04/17/18 06:10 Lymph % (Auto) 16.8 % (13.4-35.0) 04/17/18 06:10 [place] % (Auto) 6.9 % (0.0-7.3) 04/17/18 06:10 Eos % (Auto) 1.5 % (0.0-4.3) 04/17/18 06:10 Baso % (Auto) 0.6 % (0.0-1.8) 04/17/18 06:10 Lymph # 1.3 K/mm3 (1.2-5.4) 04/17/18 06:10 [place] # 0.5 K/mm3 (0.0-0.8) 04/17/18 06:10 Eos # 0.1 K/mm3 (0.0-0.4) 04/17/18 06:10 Baso # 0.0 K/mm3 (0.0-0.1) 04/17/18 06:10 Seg Neutrophils % 74.2 % (40.0-70.0) H 04/17/18 06:10 Seg Neutrophils # 5.9 K/mm3 (1.8-7.7) 04/17/18 06:10 PT 13.7 Sec. (12.2-14.9) 04/16/18 18:26 INR 0.99 (0.87-1.13) 04/16/18 18:26 APTT 28.6 Sec. (24.2-36.6) 04/16/18 18:26 Sodium 143 mmol/L (137-145) 04/17/18 06:10 Potassium 4.0 mmol/L (3.6-5.0) 04/17/18 06:10 Chloride 110.7 mmol/L (98-107) H 04/17/18 06:10 Carbon Dioxide 21 mmol/L (22-30) L 04/17/18 06:10 Anion Gap 15 mmol/L 04/17/18 06:10 BUN 18 mg/dL (7-17) H 04/17/18 06:10 Creatinine 0.8 mg/dL (0.7-1.2) 04/17/18 06:10 Estimated GFR > 60 ml/min 04/17/18 06:10 BUN/Creatinine Ratio 23 % 04/17/18 06:10 Glucose 96 mg/dL (65-100) 04/17/18 06:10 Hemoglobin A1c 5.6 % (4-6) 04/16/18 22:32 Calcium 9.3 mg/dL (8.4-10.2) 04/17/18 06:10 Magnesium 1.70 mg/dL (1.7-2.3) 04/16/18 18:26 Total Bilirubin 0.30 mg/dL (0.1-1.2) 04/17/18 06:10 Direct Bilirubin < 0.2 mg/dL (0-0.2) 04/16/18 18:26 Indirect Bilirubin 0.1 mg/dL 04/16/18 18:26 AST 34 units/L (5-40) 04/17/18 06:10 ALT 48 units/L (7-56) 04/17/18 06:10 Alkaline Phosphatase 43 units/L (35-129) 04/17/18 06:10 Troponin T < 0.010 ng/mL (0.00-0.029) 04/16/18 18:26 Total Protein 6.2 g/dL (6.3-8.2) L 04/17/18 06:10 Albumin 3.4 g/dL (3.9-5) L 04/17/18 06:10 Albumin/Globulin Ratio 1.2 % 04/17/18 06:10 Triglycerides 101 mg/dL (2-149) 04/16/18 22:32 Cholesterol 202 mg/dL (50-199) H 04/16/18 22:32 LDL Cholesterol Direct 92 mg/dL (50-130) 04/16/18 22:32 HDL Cholesterol 99 mg/dL (40-59) H 04/16/18 22:32 Cholesterol/HDL Ratio 2.04 % 04/16/18 22:32 TSH 3.900 mlU/mL (0.270-4.200) 04/17/18 10:02 Free T4 1.21 ng/dL (0.76-1.46) 04/17/18 10:02
[2018-04-17] MEDS: APRESOLINE PO SCH ×2 (15:50→21:35)
[2018-04-18] MEDS: NACL 0.9% 1000 ML 1,000 ML IV SCH (06:26)
[2018-04-18] MEDS: APRESOLINE PO SCH ×3 (08:23→20:38)
[2018-04-18] MEDS: NAMENDA PO SCH ×2 (09:15→21:36)
[2018-04-18] MEDS: PROTONIX PO SCH (09:15)
[2018-04-18] MEDS: LOVENOX SUB-Q SCH (09:15)
[2018-04-18] MEDS: ZESTRIL PO SCH (09:15)
[2018-04-18] MEDS: SODIUM CHLORIDE FLUSH SYRINGE 10 ML IV SCH ×2 (09:16→21:40)
[2018-04-18] MEDS: TYLENOL PO PRN ×2 (11:08→21:36)
--- NOTE | 2018-04-18 12:53 | Progress Note ---
Addendum entered and electronically signed by GEENA HUERTA MD 04/18/18 12:54: Chest pain this morning ECG showing no ischemic changes Troponin pending CT chest - post surgical changes in the region of the GE junction Cardiac murmur on exam Echo 08/2017 - normal LVEF, sclerotic aortic valve, mild MR Sinus bradycardia RBBB History of resolving NICMP Dementia Recommendations: Lengthy discussion with daughter and caregiver They would like to proceed with stress test in am to rule out ischemic heart disease Continue protonix therapy Original Note: Assessment and Plan Hypertension Underlying SSS currently in sinus rhythm. No events on telemetry overnight TSH is normal Chest pain Hx of Nonischemic cardiomyopathy, resolving echocardiogram 08/2017 reports a well preserved left ventricular ejection fraction 55%. [facility] 2016: no significant coronary artery disease. Dementia Plan: Pre-discharge persantine thallium stress test. This will be done tomorrow morning. Subjective Date of service: 04/18/18 Interval history: Patient complains of chest pain and nausea with some vomiting this morning. Stat ECG obtained and reviewed. No acute ischemic changes. Objective Vital Signs Temp Pulse Resp BP Pulse Ox 04/18/18 09:15 165/80 04/18/18 06:00 82 04/18/18 04:02 98.3 F 84 14 142/58 95 04/17/18 23:57 98.2 F 89 12 125/57 95 04/17/18 22:00 100 H 04/17/18 19:51 98.8 F 99 H 14 106/41 100 04/17/18 16:49 99.0 F 71 20 147/56 100 04/17/18 14:00 47 L - Physical Examination General: No Apparent Distress HEENT: Positive: PERRL Cardiac: Positive: Reg Rate and Rhythm Lungs: Positive: Decreased Breath Sounds Neuro: Positive: Weakness Extremities: Absent: edema
--- NOTE | 2018-04-18 15:06 | Progress Note ---
Assessment and Plan Assessment and plan: Bradycardia, chest pain - Secondary to sick sinus syndrome - Cardiology consulted and will do ischemic workup, troponin is negative Hypertension - on lisinopril, cardiology recommended to add Procardia at discharge Cardiomyopathy - Her last ejection fraction was 50-55% - No symptoms of CHF Dementia - Continue home medications DVT prophylaxis - On Lovenox Disposition - Continue patient care, monitor on telemetry, will have stress test tomorrow. History Interval history: Patient was seen and evaluated this morning, patient was alert but demented. patient has chest pain, nausea and vomiting in the morning. Hospitalist Physical - Physical exam Narrative exam: Not in cardiopulmonary distress. The patient appeared well nourished and normally developed. Vital signs as documented. Head exam is unremarkable. No scleral icterus . Neck is without jugular venous distension, thyromegaly, or carotid bruits. Lungs are clear to auscultation. Cardiac exam reveals regular rate and Rhythm. Abdominal exam reveals normal bowel sounds Extremities are nonedematous and both femoral and pedal pulses are normal. 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 - Constitutional Vitals: Temp Pulse Resp BP Pulse Ox 98.3 F 82 14 165/80 95 04/18/18 04:02 04/18/18 06:00 04/18/18 04:02 04/18/18 09:15 04/18/18 04:02 General appearance: Present: no acute distress Results - Labs CBC & Chem 7: 04/17/18 06:10 04/17/18 06:10 Labs: Laboratory Last Values WBC 8.0 K/mm3 (4.5-11.0) 04/17/18 06:10 RBC 3.88 M/mm3 (3.65-5.03) 04/17/18 06:10 Hgb 12.4 gm/dl (10.1-14.3) 04/17/18 06:10 Hct 38.3 % (30.3-42.9) 04/17/18 06:10 MCV 99 fl (79-97) H 04/17/18 06:10 MCH 32 pg (28-32) 04/17/18 06:10 MCHC 32 % (30-34) 04/17/18 06:10 RDW 14.2 % (13.2-15.2) 04/17/18 06:10 Plt Count 169 K/mm3 (140-440) 04/17/18 06:10 Lymph % (Auto) 16.8 % (13.4-35.0) 04/17/18 06:10 [place] % (Auto) 6.9 % (0.0-7.3) 04/17/18 06:10 Eos % (Auto) 1.5 % (0.0-4.3) 04/17/18 06:10 Baso % (Auto) 0.6 % (0.0-1.8) 04/17/18 06:10 Lymph # 1.3 K/mm3 (1.2-5.4) 04/17/18 06:10 [place] # 0.5 K/mm3 (0.0-0.8) 04/17/18 06:10 Eos # 0.1 K/mm3 (0.0-0.4) 04/17/18 06:10 Baso # 0.0 K/mm3 (0.0-0.1) 04/17/18 06:10 Seg Neutrophils % 74.2 % (40.0-70.0) H 04/17/18 06:10 Seg Neutrophils # 5.9 K/mm3 (1.8-7.7) 04/17/18 06:10 PT 13.7 Sec. (12.2-14.9) 04/16/18 18:26 INR 0.99 (0.87-1.13) 04/16/18 18:26 APTT 28.6 Sec. (24.2-36.6) 04/16/18 18:26 Sodium 143 mmol/L (137-145) 04/17/18 06:10 Potassium 4.0 mmol/L (3.6-5.0) 04/17/18 06:10 Chloride 110.7 mmol/L (98-107) H 04/17/18 06:10 Carbon Dioxide 21 mmol/L (22-30) L 04/17/18 06:10 Anion Gap 15 mmol/L 04/17/18 06:10 BUN 18 mg/dL (7-17) H 04/17/18 06:10 Creatinine 0.8 mg/dL (0.7-1.2) 04/17/18 06:10 Estimated GFR > 60 ml/min 04/17/18 06:10 BUN/Creatinine Ratio 23 % 04/17/18 06:10 Glucose 96 mg/dL (65-100) 04/17/18 06:10 Hemoglobin A1c 5.6 % (4-6) 04/16/18 22:32 Calcium 9.3 mg/dL (8.4-10.2) 04/17/18 06:10 Magnesium 1.70 mg/dL (1.7-2.3) 04/16/18 18:26 Total Bilirubin 0.30 mg/dL (0.1-1.2) 04/17/18 06:10 Direct Bilirubin < 0.2 mg/dL (0-0.2) 04/16/18 18:26 Indirect Bilirubin 0.1 mg/dL 04/16/18 18:26 AST 34 units/L (5-40) 04/17/18 06:10 ALT 48 units/L (7-56) 04/17/18 06:10 Alkaline Phosphatase 43 units/L (35-129) 04/17/18 06:10 Troponin T < 0.010 ng/mL (0.00-0.029) 04/16/18 18:26 Total Protein 6.2 g/dL (6.3-8.2) L 04/17/18 06:10 Albumin 3.4 g/dL (3.9-5) L 04/17/18 06:10 Albumin/Globulin Ratio 1.2 % 04/17/18 06:10 Triglycerides 101 mg/dL (2-149) 04/16/18 22:32 Cholesterol 202 mg/dL (50-199) H 04/16/18 22:32 LDL Cholesterol Direct 92 mg/dL (50-130) 04/16/18 22:32 HDL Cholesterol 99 mg/dL (40-59) H 04/16/18 22:32 Cholesterol/HDL Ratio 2.04 % 04/16/18 22:32 TSH 3.900 mlU/mL (0.270-4.200) 04/17/18 10:02 Free T4 1.21 ng/dL (0.76-1.46) 04/17/18 10:02
[2018-04-18] MEDS ORDERED: REGLAN IV PRN (16:06)
[2018-04-18] MEDS: ZOFRAN IV PRN (19:23)
[2018-04-19] MEDS: TYLENOL PO PRN ×2 (04:23→20:57)
[2018-04-19] MEDS ORDERED: LEXISCAN IV ONE ×2 (08:11→08:34)
--- NOTE | 2018-04-19 09:06 | XRay Report ---
FINAL REPORT EXAM: XR CHEST 1V AP HISTORY: fever COMPARISON: 04/16/2018 TECHNIQUE: Frontal and lateral views of the chest. FINDINGS: Stable cardiomegaly. The lungs are clear without focal consolidation. There is no pleural effusion or pneumothorax. There is no acute soft tissue or osseous abnormality. IMPRESSION: No acute cardiopulmonary disease.
[2018-04-19] MEDS: ROCEPHIN/NS 2 GM/100 ML 2 GM/100 ML BAG IV SCH (13:47)
[2018-04-19] MEDS: APRESOLINE PO SCH ×3 (13:48→20:57)
[2018-04-19] MEDS: NAMENDA PO SCH ×2 (13:48→21:04)
[2018-04-19] MEDS: ZESTRIL PO SCH (13:48)
[2018-04-19] MEDS: PROTONIX PO SCH (13:48)
[2018-04-19] MEDS: LOVENOX SUB-Q SCH (13:49)
[2018-04-19] MEDS: SODIUM CHLORIDE FLUSH SYRINGE 10 ML IV SCH ×2 (13:49→21:05)
--- NOTE | 2018-04-19 15:22 | Progress Note ---
Assessment and Plan Assessment and plan: Bradycardia, chest pain - Secondary to sick sinus syndrome - Cardiology consulted and will do ischemic workup, troponin is negative Hypertension - on lisinopril, cardiology recommended to add Procardia at discharge Cardiomyopathy - Her last ejection fraction was 50-55% - No symptoms of CHF Dementia - Continue home medications Patient has episodes of fever, nausea and vomiting - CXR was normal - ordered blood and urine culture - Start emperically on rocephin DVT prophylaxis - On Lovenox Disposition - Continue patient care History Interval history: Patient was seen and evaluated this morning, patient was alert but demented. patient had episodes of fever overnight, had nausea and vomiting yesterday. Hospitalist Physical - Physical exam Narrative exam: Not in cardiopulmonary distress. The patient appeared well nourished and normally developed. Vital signs as documented. Head exam is unremarkable. No scleral icterus . Neck is without jugular venous distension, thyromegaly, or carotid bruits. Lungs are clear to auscultation. Cardiac exam reveals regular rate and Rhythm. Abdominal exam reveals normal bowel sounds Extremities are nonedematous and both femoral and pedal pulses are normal. 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 - Constitutional Vitals: Temp Pulse Resp BP Pulse Ox 99.9 F H 95 H 14 129/52 97 04/19/18 08:25 04/19/18 13:58 04/19/18 08:25 04/19/18 13:58 04/19/18 13:58 General appearance: Present: no acute distress Results - Labs CBC & Chem 7: 04/17/18 06:10 04/17/18 06:10 Labs: Laboratory Last Values WBC 8.0 K/mm3 (4.5-11.0) 04/17/18 06:10 RBC 3.88 M/mm3 (3.65-5.03) 04/17/18 06:10 Hgb 12.4 gm/dl (10.1-14.3) 04/17/18 06:10 Hct 38.3 % (30.3-42.9) 04/17/18 06:10 MCV 99 fl (79-97) H 04/17/18 06:10 MCH 32 pg (28-32) 04/17/18 06:10 MCHC 32 % (30-34) 04/17/18 06:10 RDW 14.2 % (13.2-15.2) 04/17/18 06:10 Plt Count 169 K/mm3 (140-440) 04/17/18 06:10 Lymph % (Auto) 16.8 % (13.4-35.0) 04/17/18 06:10 [place] % (Auto) 6.9 % (0.0-7.3) 04/17/18 06:10 Eos % (Auto) 1.5 % (0.0-4.3) 04/17/18 06:10 Baso % (Auto) 0.6 % (0.0-1.8) 04/17/18 06:10 Lymph # 1.3 K/mm3 (1.2-5.4) 04/17/18 06:10 [place] # 0.5 K/mm3 (0.0-0.8) 04/17/18 06:10 Eos # 0.1 K/mm3 (0.0-0.4) 04/17/18 06:10 Baso # 0.0 K/mm3 (0.0-0.1) 04/17/18 06:10 Seg Neutrophils % 74.2 % (40.0-70.0) H 04/17/18 06:10 Seg Neutrophils # 5.9 K/mm3 (1.8-7.7) 04/17/18 06:10 PT 13.7 Sec. (12.2-14.9) 04/16/18 18:26 INR 0.99 (0.87-1.13) 04/16/18 18:26 APTT 28.6 Sec. (24.2-36.6) 04/16/18 18:26 Sodium 143 mmol/L (137-145) 04/17/18 06:10 Potassium 4.0 mmol/L (3.6-5.0) 04/17/18 06:10 Chloride 110.7 mmol/L (98-107) H 04/17/18 06:10 Carbon Dioxide 21 mmol/L (22-30) L 04/17/18 06:10 Anion Gap 15 mmol/L 04/17/18 06:10 BUN 18 mg/dL (7-17) H 04/17/18 06:10 Creatinine 0.8 mg/dL (0.7-1.2) 04/17/18 06:10 Estimated GFR > 60 ml/min 04/17/18 06:10 BUN/Creatinine Ratio 23 % 04/17/18 06:10 Glucose 96 mg/dL (65-100) 04/17/18 06:10 Hemoglobin A1c 5.6 % (4-6) 04/16/18 22:32 Calcium 9.3 mg/dL (8.4-10.2) 04/17/18 06:10 Magnesium 1.70 mg/dL (1.7-2.3) 04/16/18 18:26 Total Bilirubin 0.30 mg/dL (0.1-1.2) 04/17/18 06:10 Direct Bilirubin < 0.2 mg/dL (0-0.2) 04/16/18 18:26 Indirect Bilirubin 0.1 mg/dL 04/16/18 18:26 AST 34 units/L (5-40) 04/17/18 06:10 ALT 48 units/L (7-56) 04/17/18 06:10 Alkaline Phosphatase 43 units/L (35-129) 04/17/18 06:10 Troponin T < 0.010 ng/mL (0.00-0.029) 04/16/18 18:26 C-Reactive Protein < 0.03 mg/dL (0.00-1.30) 04/19/18 09:28 Total Protein 6.2 g/dL (6.3-8.2) L 04/17/18 06:10 Albumin 3.4 g/dL (3.9-5) L 04/17/18 06:10 Albumin/Globulin Ratio 1.2 % 04/17/18 06:10 Triglycerides 101 mg/dL (2-149) 04/16/18 22:32 Cholesterol 202 mg/dL (50-199) H 04/16/18 22:32 LDL Cholesterol Direct 92 mg/dL (50-130) 04/16/18 22:32 HDL Cholesterol 99 mg/dL (40-59) H 04/16/18 22:32 Cholesterol/HDL Ratio 2.04 % 04/16/18 22:32 TSH 3.900 mlU/mL (0.270-4.200) 04/17/18 10:02 Free T4 1.21 ng/dL (0.76-1.46) 04/17/18 10:02
--- NOTE | 2018-04-19 16:31 | Progress Note ---
Assessment and Plan Chest pain ECG showing no ischemic changes Troponin - negative CT chest - post surgical changes in the region of the GE junction Cardiac cath 06/2015 - non-obstructive CAD Cardiac murmur on exam Echo 08/2017 - normal LVEF, sclerotic aortic valve, mild MR Sinus bradycardia RBBB History of resolving NICMP Dementia Recommendations: Lengthy discussion with daughter and caregiver They would like to proceed with stress test to rule out ischemic heart disease Lexiscan could not be completed today due to lack if IV access. We will have to reschedule for saturday Subjective Date of service: 04/19/18 Principal diagnosis: Chest Pain Interval history: Patient is comfortable this morning Lexiscan could not be completed because patient lost IV access and stress lab staff were not able to regain it Objective Vital Signs Temp Pulse Resp BP Pulse Ox 04/19/18 13:58 95 H 129/52 97 04/19/18 11:40 157/61 04/19/18 08:25 99.9 F H 93 H 14 125/57 96 04/19/18 06:12 100.3 F H 04/19/18 05:39 102 H 04/19/18 04:20 102.8 F H 106 H 18 156/69 97 04/18/18 23:22 100.1 F H 105 H 16 118/48 95 04/18/18 20:02 103 H 04/18/18 19:58 100.2 F H 104 H 14 158/57 97 04/18/18 17:26 99.6 F 101 H 16 138/64 97 - Physical Examination General: No Apparent Distress HEENT: Positive: PERRL Neck: Positive: neck supple Cardiac: Positive: Reg Rate and Rhythm Lungs: Positive: Normal Exam Neuro: Positive: Weakness Extremities: Absent: edema - Imaging and Cardiology EKG: report reviewed (sinus bradycardia heart rate of 43 per minute)
[2018-04-19 19:10] LABS: Bilirubin,Urine NEG (Negative); Blood,Urine NEG (Negative); Color,Urine Yellow (Yellow); Mucus,Urine FEW /HPF; Protein,Urine <15 mg/dL mg/dL (Negative); RBC,Urine < 1.0 /HPF (0.0-6.0); Urobilinogen,Urine < 2.0 mg/dL (<2.0); WBC,Urine < 1.0 /HPF (0.0-6.0)
[2018-04-19] MEDS: LATANOPROST 0.005% OU SCH (20:58)
[2018-04-19] MEDS: COMBIGAN 0.2-0.5% OU SCH (21:05)
[2018-04-20 06:57] LABS: Basophils # (Auto) 0.1 K/mm3 (0.0-0.1); Basophils % (Auto) 0.8 % (0.0-1.8); Hematocrit 35.9 % (30.3-42.9); Hemoglobin 11.7 gm/dl (10.1-14.3); Lymphocytes # (Auto) 0.8 K/mm3 (1.2-5.4); Lymphocytes % (Auto) 12.6 % (13.4-35.0); Mean Corpuscular HGB Conc 33 % (30-34); Mean Corpuscular Volume 99 fl (79-97); Monocytes # (Auto) 0.9 K/mm3 (0.0-0.8); Monocytes % (Auto) 14.4 % (0.0-7.3); Platelet Count 142 K/mm3 (140-440); Red Blood Count 3.62 M/mm3 (3.65-5.03); Red Cell Distribution Width 14.3 % (13.2-15.2)
[2018-04-20 07:17] LABS: Calcium 8.2 mg/dL (8.4-10.2)
--- NOTE | 2018-04-20 09:33 | Progress Note ---
Assessment and Plan Chest pain ECG showing no ischemic changes Troponin - negative CT chest - post surgical changes in the region of the GE junction Cardiac cath 06/2015 - non-obstructive CAD Cardiac murmur on exam Echo 08/2017 - normal LVEF, sclerotic aortic valve, mild MR Sinus bradycardia - resolved; frequent PACs RBBB History of resolving NICMP Dementia Recommendations: Lengthy discussion with daughter and caregiver They would like to proceed with stress test to rule out ischemic heart disease Lexiscan could not be completed saturday due to lack if IV access. We will have to reschedule for saturday Subjective Date of service: 04/20/18 Principal diagnosis: Chest Pain Interval history: Patient has no complaints this morning Objective Vital Signs Temp Pulse Resp BP Pulse Ox 04/20/18 07:59 99.7 F H 72 16 145/58 95 04/20/18 04:41 99.8 F H 73 16 155/71 97 04/19/18 23:26 100.1 F H 78 16 101/43 98 04/19/18 22:00 95 H 04/19/18 20:57 16 04/19/18 19:41 100.8 F H 97 H 16 153/72 99 04/19/18 17:54 96 H 153/62 93 04/19/18 16:00 100.8 F H 04/19/18 13:58 95 H 129/52 97 04/19/18 11:40 157/61 - Physical Examination General: No Apparent Distress HEENT: Positive: PERRL Neck: Positive: neck supple Cardiac: Positive: Reg Rate and Rhythm Lungs: Positive: Normal Exam Neuro: Positive: Weakness Extremities: Absent: edema - Labs and Meds CBC 04/20/18 Range/Units 06:26 WBC 6.4 (4.5-11.0) K/mm3 RBC 3.62 L (3.65-5.03) M/mm3 Hgb 11.7 (10.1-14.3) gm/dl Hct 35.9 (30.3-42.9) % Plt Count 142 (140-440) K/mm3 Lymph # 0.8 L (1.2-5.4) K/mm3 [facility] # 0.9 H (0.0-0.8) K/mm3 Eos # 0.0 (0.0-0.4) K/mm3 Baso # 0.1 (0.0-0.1) K/mm3 Comprehensive Metabolic Panel 04/20/18 Range/Units 06:26 Sodium 144 (137-145) mmol/L Potassium 3.9 (3.6-5.0) mmol/L Chloride 108.4 H (98-107) mmol/L Carbon Dioxide 22 (22-30) mmol/L BUN 21 H (7-17) mg/dL Creatinine 1.4 H D (0.7-1.2) mg/dL Glucose 111 H (65-100) mg/dL Calcium 8.2 L (8.4-10.2) mg/dL - Imaging and Cardiology EKG: report reviewed (sinus bradycardia heart rate of 43 per minute)
[2018-04-20] MEDS: ROCEPHIN/NS 2 GM/100 ML 2 GM/100 ML BAG IV SCH (10:47)
[2018-04-20] MEDS: PROTONIX PO SCH (10:47)
[2018-04-20] MEDS: NAMENDA PO SCH ×2 (10:47→21:06)
[2018-04-20] MEDS: ZESTRIL PO SCH (10:47)
[2018-04-20] MEDS: SODIUM CHLORIDE FLUSH SYRINGE 10 ML IV SCH ×2 (10:48→21:07)
[2018-04-20] MEDS: COMBIGAN 0.2-0.5% OU SCH ×2 (10:48→21:06)
[2018-04-20] MEDS: LOVENOX SUB-Q SCH (10:48)
[2018-04-20] MEDS: APRESOLINE PO SCH ×3 (10:48→21:07)
--- NOTE | 2018-04-20 11:56 | Progress Note ---
Assessment and Plan Assessment and plan: Bradycardia, chest pain - Secondary to sick sinus syndrome - Cardiology consulted and will do ischemic workup, troponin is negative Hypertension - on lisinopril, cardiology recommended to add Procardia at discharge Cardiomyopathy - Her last ejection fraction was 50-55% - No symptoms of CHF Dementia - Continue home medications Patient has episodes of fever, nausea and vomiting - CXR was normal - blood and urine culture; normal - Start emperically on rocephin DVT prophylaxis - On Lovenox Disposition - Continue patient care History Interval history: Patient was seen and evaluated this morning, patient was alert but demented. patient had episodes of fever overnight. Hospitalist Physical - Physical exam Narrative exam: Not in cardiopulmonary distress. The patient appeared well nourished and normally developed. Vital signs as documented. Head exam is unremarkable. No scleral icterus . Neck is without jugular venous distension, thyromegaly, or carotid bruits. Lungs are clear to auscultation. Cardiac exam reveals regular rate and Rhythm. Abdominal exam reveals normal bowel sounds Extremities are nonedematous and both femoral and pedal pulses are normal. 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 - Constitutional Vitals: Temp Pulse Resp BP Pulse Ox 99.7 F H 72 16 145/58 95 04/20/18 07:59 04/20/18 07:59 04/20/18 07:59 04/20/18 07:59 04/20/18 07:59 General appearance: Present: no acute distress Results - Labs CBC & Chem 7: 04/20/18 06:26 04/20/18 06:26 Labs: Laboratory Last Values WBC 6.4 K/mm3 (4.5-11.0) 04/20/18 06:26 RBC 3.62 M/mm3 (3.65-5.03) L 04/20/18 06:26 Hgb 11.7 gm/dl (10.1-14.3) 04/20/18 06:26 Hct 35.9 % (30.3-42.9) 04/20/18 06:26 MCV 99 fl (79-97) H 04/20/18 06:26 MCH 32 pg (28-32) 04/20/18 06:26 MCHC 33 % (30-34) 04/20/18 06:26 RDW 14.3 % (13.2-15.2) 04/20/18 06:26 Plt Count 142 K/mm3 (140-440) 04/20/18 06:26 Lymph % (Auto) 12.6 % (13.4-35.0) L 04/20/18 06:26 [place] % (Auto) 14.4 % (0.0-7.3) H 04/20/18 06:26 Eos % (Auto) 0.0 % (0.0-4.3) 04/20/18 06:26 Baso % (Auto) 0.8 % (0.0-1.8) 04/20/18 06:26 Lymph # 0.8 K/mm3 (1.2-5.4) L 04/20/18 06:26 [place] # 0.9 K/mm3 (0.0-0.8) H 04/20/18 06:26 Eos # 0.0 K/mm3 (0.0-0.4) 04/20/18 06:26 Baso # 0.1 K/mm3 (0.0-0.1) 04/20/18 06:26 Seg Neutrophils % 72.2 % (40.0-70.0) H 04/20/18 06:26 Seg Neutrophils # 4.6 K/mm3 (1.8-7.7) 04/20/18 06:26 PT 13.7 Sec. (12.2-14.9) 04/16/18 18:26 INR 0.99 (0.87-1.13) 04/16/18 18:26 APTT 28.6 Sec. (24.2-36.6) 04/16/18 18:26 Sodium 144 mmol/L (137-145) 04/20/18 06:26 Potassium 3.9 mmol/L (3.6-5.0) 04/20/18 06:26 Chloride 108.4 mmol/L (98-107) H 04/20/18 06:26 Carbon Dioxide 22 mmol/L (22-30) 04/20/18 06:26 Anion Gap 18 mmol/L 04/20/18 06:26 BUN 21 mg/dL (7-17) H 04/20/18 06:26 Creatinine 1.4 mg/dL (0.7-1.2) H D 04/20/18 06:26 Estimated GFR 43 ml/min 04/20/18 06:26 BUN/Creatinine Ratio 15 % 04/20/18 06:26 Glucose 111 mg/dL (65-100) H 04/20/18 06:26 Hemoglobin A1c 5.6 % (4-6) 04/16/18 22:32 Calcium 8.2 mg/dL (8.4-10.2) L 04/20/18 06:26 Magnesium 1.70 mg/dL (1.7-2.3) 04/16/18 18:26 Total Bilirubin 0.30 mg/dL (0.1-1.2) 04/17/18 06:10 Direct Bilirubin < 0.2 mg/dL (0-0.2) 04/16/18 18:26 Indirect Bilirubin 0.1 mg/dL 04/16/18 18:26 AST 34 units/L (5-40) 04/17/18 06:10 ALT 48 units/L (7-56) 04/17/18 06:10 Alkaline Phosphatase 43 units/L (35-129) 04/17/18 06:10 Troponin T < 0.010 ng/mL (0.00-0.029) 04/16/18 18:26 C-Reactive Protein < 0.03 mg/dL (0.00-1.30) 04/19/18 09:28 Total Protein 6.2 g/dL (6.3-8.2) L 04/17/18 06:10 Albumin 3.4 g/dL (3.9-5) L 04/17/18 06:10 Albumin/Globulin Ratio 1.2 % 04/17/18 06:10 Triglycerides 101 mg/dL (2-149) 04/16/18 22:32 Cholesterol 202 mg/dL (50-199) H 04/16/18 22:32 LDL Cholesterol Direct 92 mg/dL (50-130) 04/16/18 22:32 HDL Cholesterol 99 mg/dL (40-59) H 04/16/18 22:32 Cholesterol/HDL Ratio 2.04 % 04/16/18 22:32 TSH 3.900 mlU/mL (0.270-4.200) 04/17/18 10:02 Free T4 1.21 ng/dL (0.76-1.46) 04/17/18 10:02 Urine Color Yellow (Yellow) 04/19/18 Unknown Urine Turbidity Clear (Clear) 04/19/18 Unknown Urine pH 5.0 (5.0-7.0) 04/19/18 Unknown Ur Specific [place] 1.018 (1.003-1.030) 04/19/18 Unknown Urine Protein <15 mg/dl mg/dL (Negative) 04/19/18 Unknown Urine Glucose (UA) Neg mg/dL (Negative) 04/19/18 Unknown Urine Ketones Neg mg/dL (Negative) 04/19/18 Unknown Urine Blood Neg (Negative) 04/19/18 Unknown Urine Nitrite Neg (Negative) 04/19/18 Unknown Urine Bilirubin Neg (Negative) 04/19/18 Unknown Urine Urobilinogen < 2.0 mg/dL (<2.0) 04/19/18 Unknown Ur Leukocyte Esterase Neg (Negative) 04/19/18 Unknown Urine WBC (Auto) < 1.0 /HPF (0.0-6.0) 04/19/18 Unknown Urine RBC (Auto) < 1.0 /HPF (0.0-6.0) 04/19/18 Unknown U Epithel Cells (Auto) < 1.0 /HPF (0-13.0) 04/19/18 Unknown Urine Mucus Few /HPF 04/19/18 Unknown
[2018-04-20] MEDS: LATANOPROST 0.005% OU SCH (17:06)
[2018-04-21] MEDS: APRESOLINE PO SCH ×3 (08:00→22:29)
[2018-04-21] MEDS ORDERED: LEXISCAN IV ONE (08:28)
[2018-04-21] MEDS: ZOFRAN IV PRN (11:05)
[2018-04-21] MEDS: LOVENOX SUB-Q SCH (11:15)
[2018-04-21] MEDS: COMBIGAN 0.2-0.5% OU SCH ×2 (11:15→22:27)
[2018-04-21] MEDS: SODIUM CHLORIDE FLUSH SYRINGE 10 ML IV SCH ×2 (11:19→22:27)
[2018-04-21] MEDS: ZESTRIL PO SCH (11:45)
[2018-04-21] MEDS: PROTONIX PO SCH (11:45)
[2018-04-21] MEDS: NAMENDA PO SCH ×2 (11:45→22:28)
--- NOTE | 2018-04-21 14:43 | Progress Note ---
Assessment and Plan Assessment and plan: Bradycardia, chest pain - Secondary to sick sinus syndrome - Cardiology consulted and did stress test result is pending - patient is still bradycardic Hypertension - on lisinopril, cardiology recommended to add Procardia at discharge Cardiomyopathy - Her last ejection fraction was 50-55% - No symptoms of CHF Dementia - Continue home medications Patient has episodes of fever, nausea and vomiting - CXR was normal - blood and urine culture; normal - was on rocephin for 2 days and d/jason today DVT prophylaxis - On Lovenox Disposition - DC once stable. History Interval history: Patient was seen and evaluated this morning, patient was alert but demented. patient was complaining of nausea. Hospitalist Physical - Physical exam Narrative exam: Not in cardiopulmonary distress. The patient appeared well nourished and normally developed. Vital signs as documented. Head exam is unremarkable. No scleral icterus . Neck is without jugular venous distension, thyromegaly, or carotid bruits. Lungs are clear to auscultation. Cardiac exam reveals regular rate and Rhythm. bradycardia. Abdominal exam reveals normal bowel sounds Extremities are nonedematous and both femoral and pedal pulses are normal. 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 - Constitutional Vitals: Temp Pulse Resp BP Pulse Ox 98.2 F 43 L 17 95/32 97 04/21/18 11:43 04/21/18 14:14 04/21/18 11:43 04/21/18 14:14 04/21/18 11:43 General appearance: Present: no acute distress Results - Labs CBC & Chem 7: 04/20/18 06:26 04/20/18 06:26 Labs: Laboratory Last Values WBC 6.4 K/mm3 (4.5-11.0) 04/20/18 06:26 RBC 3.62 M/mm3 (3.65-5.03) L 04/20/18 06:26 Hgb 11.7 gm/dl (10.1-14.3) 04/20/18 06:26 Hct 35.9 % (30.3-42.9) 04/20/18 06:26 MCV 99 fl (79-97) H 04/20/18 06:26 MCH 32 pg (28-32) 04/20/18 06:26 MCHC 33 % (30-34) 04/20/18 06:26 RDW 14.3 % (13.2-15.2) 04/20/18 06:26 Plt Count 142 K/mm3 (140-440) 04/20/18 06:26 Lymph % (Auto) 12.6 % (13.4-35.0) L 04/20/18 06:26 [place] % (Auto) 14.4 % (0.0-7.3) H 04/20/18 06:26 Eos % (Auto) 0.0 % (0.0-4.3) 04/20/18 06:26 Baso % (Auto) 0.8 % (0.0-1.8) 04/20/18 06:26 Lymph # 0.8 K/mm3 (1.2-5.4) L 04/20/18 06:26 [place] # 0.9 K/mm3 (0.0-0.8) H 04/20/18 06:26 Eos # 0.0 K/mm3 (0.0-0.4) 04/20/18 06:26 Baso # 0.1 K/mm3 (0.0-0.1) 04/20/18 06:26 Seg Neutrophils % 72.2 % (40.0-70.0) H 04/20/18 06:26 Seg Neutrophils # 4.6 K/mm3 (1.8-7.7) 04/20/18 06:26 PT 13.7 Sec. (12.2-14.9) 04/16/18 18:26 INR 0.99 (0.87-1.13) 04/16/18 18:26 APTT 28.6 Sec. (24.2-36.6) 04/16/18 18:26 Sodium 144 mmol/L (137-145) 04/20/18 06:26 Potassium 3.9 mmol/L (3.6-5.0) 04/20/18 06:26 Chloride 108.4 mmol/L (98-107) H 04/20/18 06:26 Carbon Dioxide 22 mmol/L (22-30) 04/20/18 06:26 Anion Gap 18 mmol/L 04/20/18 06:26 BUN 21 mg/dL (7-17) H 04/20/18 06:26 Creatinine 1.4 mg/dL (0.7-1.2) H D 04/20/18 06:26 Estimated GFR 43 ml/min 04/20/18 06:26 BUN/Creatinine Ratio 15 % 04/20/18 06:26 Glucose 111 mg/dL (65-100) H 04/20/18 06:26 Hemoglobin A1c 5.6 % (4-6) 04/16/18 22:32 Calcium 8.2 mg/dL (8.4-10.2) L 04/20/18 06:26 Magnesium 1.70 mg/dL (1.7-2.3) 04/16/18 18:26 Total Bilirubin 0.30 mg/dL (0.1-1.2) 04/17/18 06:10 Direct Bilirubin < 0.2 mg/dL (0-0.2) 04/16/18 18:26 Indirect Bilirubin 0.1 mg/dL 04/16/18 18:26 AST 34 units/L (5-40) 04/17/18 06:10 ALT 48 units/L (7-56) 04/17/18 06:10 Alkaline Phosphatase 43 units/L (35-129) 04/17/18 06:10 Troponin T < 0.010 ng/mL (0.00-0.029) 04/16/18 18:26 C-Reactive Protein < 0.03 mg/dL (0.00-1.30) 04/19/18 09:28 Total Protein 6.2 g/dL (6.3-8.2) L 04/17/18 06:10 Albumin 3.4 g/dL (3.9-5) L 04/17/18 06:10 Albumin/Globulin Ratio 1.2 % 04/17/18 06:10 Triglycerides 101 mg/dL (2-149) 04/16/18 22:32 Cholesterol 202 mg/dL (50-199) H 04/16/18 22:32 LDL Cholesterol Direct 92 mg/dL (50-130) 04/16/18 22:32 HDL Cholesterol 99 mg/dL (40-59) H 04/16/18 22:32 Cholesterol/HDL Ratio 2.04 % 04/16/18 22:32 TSH 3.900 mlU/mL (0.270-4.200) 04/17/18 10:02 Free T4 1.21 ng/dL (0.76-1.46) 04/17/18 10:02 Urine Color Yellow (Yellow) 04/19/18 Unknown Urine Turbidity Clear (Clear) 04/19/18 Unknown Urine pH 5.0 (5.0-7.0) 04/19/18 Unknown Ur Specific [place] 1.018 (1.003-1.030) 04/19/18 Unknown Urine Protein <15 mg/dl mg/dL (Negative) 04/19/18 Unknown Urine Glucose (UA) Neg mg/dL (Negative) 04/19/18 Unknown Urine Ketones Neg mg/dL (Negative) 04/19/18 Unknown Urine Blood Neg (Negative) 04/19/18 Unknown Urine Nitrite Neg (Negative) 04/19/18 Unknown Urine Bilirubin Neg (Negative) 04/19/18 Unknown Urine Urobilinogen < 2.0 mg/dL (<2.0) 04/19/18 Unknown Ur Leukocyte Esterase Neg (Negative) 04/19/18 Unknown Urine WBC (Auto) < 1.0 /HPF (0.0-6.0) 04/19/18 Unknown Urine RBC (Auto) < 1.0 /HPF (0.0-6.0) 04/19/18 Unknown U Epithel Cells (Auto) < 1.0 /HPF (0-13.0) 04/19/18 Unknown Urine Mucus Few /HPF 04/19/18 Unknown
--- NOTE | 2018-04-21 19:19 | Event Note ---
Date: 04/21/18 Lexiscan thallium stress test done today, show normal perfusion, no ischemic defects, negative study.
[2018-04-21] MEDS: LATANOPROST 0.005% OU SCH (19:26)
--- NOTE | 2018-04-21 23:54 | Treadmill Report ---
THALLIUM STRESS TEST LEFT VENTRICLE: Left ventricular chamber size is within normal spread. Perfusion study demonstrates fairly homogeneous uptake of the tracer in all segments, no significant perfusion defects identified. The study is somewhat suboptimal with evidence of GI uptake as well as breast attenuation artifact. Gated analysis demonstrates normal left ventricular systolic function, ejection fraction greater than 70%. CONCLUSION: Suboptimal perfusion study, with no demonstrable ischemia, negative study. [facility]# [id number] [place]/NTS
[2018-04-22] MEDS: COMBIGAN 0.2-0.5% OU SCH ×2 (09:31→22:30)
[2018-04-22] MEDS: APRESOLINE PO SCH ×3 (09:31→22:28)
[2018-04-22] MEDS: NAMENDA PO SCH ×2 (09:31→22:26)
[2018-04-22] MEDS: PROTONIX PO SCH (09:32)
[2018-04-22] MEDS: ZESTRIL PO SCH (09:32)
[2018-04-22] MEDS: LOVENOX SUB-Q SCH (09:32)
[2018-04-22] MEDS: SODIUM CHLORIDE FLUSH SYRINGE 10 ML IV SCH ×2 (09:34→22:28)
--- NOTE | 2018-04-22 11:33 | Progress Note ---
Addendum entered and electronically signed by ROMARIO HER MD 04/22/18 13:23: Thallium stress test was negative, no further cardiac evaluation, will follow in termittently. As outpatient, she should be considered for event monitoring off high bradycardia. Original Note: Assessment and Plan Hypertension Underlying SSS currently in sinus rhythm. No events on telemetry overnight TSH is normal Chest pain, atypical Lexiscan thallium stress test this admission show normal perfusion, no ische juli defects, negative study. Hx of Nonischemic cardiomyopathy, resolving echocardiogram 08/2017 reports a well preserved left ventricular ejection fraction 55%. [facility] 2016: no significant coronary artery disease. Dementia Conservative cardiac management. Subjective Date of service: 04/22/18 Principal diagnosis: Chest Pain Interval history: Patient is resting in bed comfortably. She denies chest pain and shortness of breath. She complains of nausea. Objective Vital Signs Temp Pulse Pulse Resp Resp BP BP 04/22/18 10:00 63 04/22/18 09:32 68 155/61 04/22/18 08:50 99.9 F H 68 16 155/61 04/22/18 03:46 98.3 F 57 L 18 112/39 04/21/18 23:45 97.9 F 62 18 105/43 04/21/18 22:00 18 04/21/18 21:00 60 18 04/21/18 19:56 49 L 04/21/18 19:39 98.1 F 49 L 18 141/57 04/21/18 16:53 98.4 F 49 L 16 128/42 04/21/18 14:14 43 L 95/32 04/21/18 12:23 52 L 04/21/18 11:45 47 L 111/48 04/21/18 11:43 98.2 F 47 L 17 111/48 Pulse Ox 04/22/18 10:00 04/22/18 09:32 04/22/18 08:50 98 04/22/18 03:46 94 04/21/18 23:45 96 04/21/18 22:00 04/21/18 21:00 97 04/21/18 19:56 04/21/18 19:39 100 04/21/18 16:53 96 04/21/18 14:14 04/21/18 12:23 04/21/18 11:45 02/18/19 11:43 97 - Physical Examination General: No Apparent Distress HEENT: Positive: PERRL Neck: Positive: trachea midline Cardiac: Positive: Reg Rate and Rhythm Lungs: Positive: Decreased Breath Sounds Neuro: Positive: Weakness Extremities: Absent: edema
--- NOTE | 2018-04-22 15:05 | Progress Note ---
Assessment and Plan Assessment and plan: 88-year-old -[place] female with history of hypertension and dementia and being treated for bradycardia comes in for dizziness for 4 days. Patient has been feeling weak and dizzy and passing out. Patient is seeing [place] [facility]--Dr. SWANSON for management of bradycardia. Patient was given the option of pacemaker but the patient did not want it. 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 No chest pain. SIRS Fever of Unknown Origin -Hold antibiotics at this time. -No clear evidence of sepsis ANITA presume vasomotor nephropathy -Hold ACEI -Start gentle hydration Persistent nausea and vomiting - CXR was normal - blood and urine culture; normal - was on rocephin for 2 days and d/jason - Obtain GI eval. Bradycardia, chest pain - Secondary to sick sinus syndrome - Cardiology consulted and did stress test and negative for ischemia - patient is still bradycardic - Outpatient event monitoring per cardiology Hypertension - on lisinopril, cardiology recommended to add Procardia at discharge Cardiomyopathy - Her last ejection fraction was 50-55% - No symptoms of CHF Dementia - Continue home medications DVT prophylaxis - On Lovenox Disposition - DC once stable. Discussed with family. Will transfer to [facility] unit. History Interval history: Patient seen and examined this morning at bedside considers to appear very lethargic according to daughter still with persistent nausea and vomited multiple tolerating by mouth. Patient was legally blind denies any chest pain d enies shortness of breath or abdominal pain. Hospitalist Physical - Physical exam Narrative exam: VITAL SIGNS: Reviewed. GENERAL: The patient appeared well nourished and normally developed, otherwise lethargic. Vital signs as documented. HEAD: No signs of head trauma. EYES: Pupils are equal. EARS: Hearing grossly intact. MOUTH: Oropharynx is normal. NECK: No adenopathy, no JVD. CHEST: Chest with clear breath sounds bilaterally. No wheezes, rales, or rhonchi. CARDIAC: Regular rate and rhythm. S1 and S2, without murmurs, gallops, or rubs. VASCULAR: No Edema. Peripheral pulses normal and equal in all extremities. ABDOMEN: Soft, without detectable tenderness. No sign of distention. No rebound or guarding, and no masses palpated. Bowel Sounds normal. MUSCULOSKELETAL: Good range of motion of all major joints. Extremities without clubbing, cyanosis or edema. NEUROLOGIC EXAM: awake but lethargic and oriented x 3. No focal sensory or strength deficits. Speech normal. Follows commands. PSYCHIATRIC: Mood normal. SKIN: No rash or lesions. - Constitutional Vitals: Temp Pulse Resp BP Pulse Ox 99.9 F H 63 16 155/61 98 04/22/18 08:50 04/22/18 10:00 04/22/18 08:50 04/22/18 09:32 04/22/18 08:50 General appearance: Present: no acute distress Results - Labs CBC & Chem 7: 04/20/18 06:26 04/20/18 06:26 Labs: Laboratory Last Values WBC 6.4 K/mm3 (4.5-11.0) 04/20/18 06:26 RBC 3.62 M/mm3 (3.65-5.03) L 04/20/18 06:26 Hgb 11.7 gm/dl (10.1-14.3) 04/20/18 06:26 Hct 35.9 % (30.3-42.9) 04/20/18 06:26 MCV 99 fl (79-97) H 04/20/18 06:26 MCH 32 pg (28-32) 04/20/18 06:26 MCHC 33 % (30-34) 04/20/18 06:26 RDW 14.3 % (13.2-15.2) 04/20/18 06:26 Plt Count 142 K/mm3 (140-440) 04/20/18 06:26 Lymph % (Auto) 12.6 % (13.4-35.0) L 04/20/18 06:26 Greene % (Auto) 14.4 % (0.0-7.3) H 04/20/18 06:26 Eos % (Auto) 0.0 % (0.0-4.3) 04/20/18 06:26 Baso % (Auto) 0.8 % (0.0-1.8) 04/20/18 06:26 Lymph # 0.8 K/mm3 (1.2-5.4) L 04/20/18 06:26 Greene # 0.9 K/mm3 (0.0-0.8) H 04/20/18 06:26 Eos # 0.0 K/mm3 (0.0-0.4) 04/20/18 06:26 Baso # 0.1 K/mm3 (0.0-0.1) 04/20/18 06:26 Seg Neutrophils % 72.2 % (40.0-70.0) H 04/20/18 06:26 Seg Neutrophils # 4.6 K/mm3 (1.8-7.7) 04/20/18 06:26 PT 13.7 Sec. (12.2-14.9) 04/16/18 18:26 INR 0.99 (0.87-1.13) 04/16/18 18:26 APTT 28.6 Sec. (24.2-36.6) 04/16/18 18:26 Sodium 144 mmol/L (137-145) 04/20/18 06:26 Potassium 3.9 mmol/L (3.6-5.0) 04/20/18 06:26 Chloride 108.4 mmol/L (98-107) H 04/20/18 06:26 Carbon Dioxide 22 mmol/L (22-30) 04/20/18 06:26 Anion Gap 18 mmol/L 04/20/18 06:26 BUN 21 mg/dL (7-17) H 04/20/18 06:26 Creatinine 1.4 mg/dL (0.7-1.2) H D 04/20/18 06:26 Estimated GFR 43 ml/min 04/20/18 06:26 BUN/Creatinine Ratio 15 % 04/20/18 06:26 Glucose 111 mg/dL (65-100) H 04/20/18 06:26 Hemoglobin A1c 5.6 % (4-6) 04/16/18 22:32 Calcium 8.2 mg/dL (8.4-10.2) L 04/20/18 06:26 Magnesium 1.70 mg/dL (1.7-2.3) 04/16/18 18:26 Total Bilirubin 0.30 mg/dL (0.1-1.2) 04/17/18 06:10 Direct Bilirubin < 0.2 mg/dL (0-0.2) 04/16/18 18:26 Indirect Bilirubin 0.1 mg/dL 04/16/18 18:26 AST 34 units/L (5-40) 04/17/18 06:10 ALT 48 units/L (7-56) 04/17/18 06:10 Alkaline Phosphatase 43 units/L (35-129) 04/17/18 06:10 Troponin T < 0.010 ng/mL (0.00-0.029) 04/16/18 18:26 C-Reactive Protein < 0.03 mg/dL (0.00-1.30) 04/19/18 09:28 Total Protein 6.2 g/dL (6.3-8.2) L 04/17/18 06:10 Albumin 3.4 g/dL (3.9-5) L 04/17/18 06:10 Albumin/Globulin Ratio 1.2 % 04/17/18 06:10 Triglycerides 101 mg/dL (2-149) 04/16/18 22:32 Cholesterol 202 mg/dL (50-199) H 04/16/18 22:32 LDL Cholesterol Direct 92 mg/dL (50-130) 04/16/18 22:32 HDL Cholesterol 99 mg/dL (40-59) H 04/16/18 22:32 Cholesterol/HDL Ratio 2.04 % 04/16/18 22:32 TSH 3.900 mlU/mL (0.270-4.200) 04/17/18 10:02 Free T4 1.21 ng/dL (0.76-1.46) 04/17/18 10:02 Urine Color Yellow (Yellow) 04/19/18 Unknown Urine Turbidity Clear (Clear) 04/19/18 Unknown Urine pH 5.0 (5.0-7.0) 04/19/18 Unknown Ur Specific Rainbow 1.018 (1.003-1.030) 04/19/18 Unknown Urine Protein <15 mg/dl mg/dL (Negative) 04/19/18 Unknown Urine Glucose (UA) Neg mg/dL (Negative) 04/19/18 Unknown Urine Ketones Neg mg/dL (Negative) 04/19/18 Unknown Urine Blood Neg (Negative) 04/19/18 Unknown Urine Nitrite Neg (Negative) 04/19/18 Unknown Urine Bilirubin Neg (Negative) 04/19/18 Unknown Urine Urobilinogen < 2.0 mg/dL (<2.0) 04/19/18 Unknown Ur Leukocyte Esterase Neg (Negative) 04/19/18 Unknown Urine WBC (Auto) < 1.0 /HPF (0.0-6.0) 04/19/18 Unknown Urine RBC (Auto) < 1.0 /HPF (0.0-6.0) 04/19/18 Unknown U Epithel Cells (Auto) < 1.0 /HPF (0-13.0) 04/19/18 Unknown Urine Mucus Few /HPF 04/19/18 Unknown
[2018-04-22] MEDS: NACL 0.9% 1000 ML 1,000 ML IV SCH (17:45)
[2018-04-22] MEDS: LATANOPROST 0.005% OU SCH (18:23)
[2018-04-23] MEDS: NACL 0.9% 1000 ML 1,000 ML IV SCH (02:49)
[2018-04-23] MEDS: COMBIGAN 0.2-0.5% OU SCH (09:24)
[2018-04-23] MEDS: NAMENDA PO SCH (09:24)
[2018-04-23] MEDS: LOVENOX SUB-Q SCH (09:24)
[2018-04-23] MEDS: PROTONIX PO SCH (09:25)
[2018-04-23] MEDS: APRESOLINE PO SCH ×2 (09:25→13:29)
[2018-04-23] MEDS: SODIUM CHLORIDE FLUSH SYRINGE 10 ML IV SCH (09:25)
--- NOTE | 2018-04-23 11:14 | Gastroenterology Consultation ---
Addendum entered and electronically signed by DARIANA FONTANEZ MD 04/23/18 12:17: Patient seen and examined on 04/23/2018. 88 yo female with pmh of HTN, dementia, and h/o multiple abdominal surgeries including antrectomy, left hemicolectomy, cholecystectomy, and hysterectomy. She had chronic nausea, which has worsen about 3 weeks ago correlating to consuming a larger quantity of food with meals. Symptoms improved and tolerating diet this morning. Advised to continue with small quantity meal. patient okay to be d/c per GI standpoint with f/u in clinic Original Note: History of Present Illness - Reason for Consult Consult date: 04/23/18 persistent nausea Requesting physician: BETO MCQUEEN - History of Present Illness Patient is a 88 y/o female with PMH of HTN, dementia, glaucoma, GERD, and arthritis who was admitted for bradycardia 2/2 sick sinus syndrome with associated dizziness. Cardiology following. GI has been consulted for persistent nausea. Patient is known to our service and is followed by Dr. Jarvis. She has a hx of multiple abdominal surgeries to include s/p antrectomy, s/p left hemicolectomy and colostomy 2/2 diverticulitis (2016), s/p cholecystectomy, and hysterectomy. This morning patient was resting in bed w/o acute distress and daughter at bedside who assisted with obtaining history. She reports some chronic intermittent abdominal symptoms in the past but states that the patient began to complaint of nausea approximately 3 weeks ago to which she correlates with her consuming a larger quantity of food with meals than usual (normally eats 6-7 small meals day following prior gastric surgery). Patient states nausea has now resolved and was able to tolerate eating breakfast this am w/o diffic ulty. Weight has remained stable. Denies dysphagia, vomiting or abd pain. Past History Past Medical History: other (as per HPI) Past Surgical History: cholecystectomy, hysterectomy, total hip replacement, bowel surgery (s/p antrectomy, s/p left hemicolectomy and colostomy 2017), Other (EUS 2016 ) Social history: lives with family. denies: smoking, alcohol abuse Family history: hypertension Medications and Allergies Allergies Allergy/AdvReac Type Severity Reaction Status Date / Time No Known Allergies Allergy Verified 05/26/16 08:23 Home Medications Medication Instructions Recorded Confirmed Last Taken Type Omeprazole [PriLOSEC] 40 mg PO QDAY #30 capsule. 08/18/15 04/17/18 04/16/18 Rx Ferrous Sulfate [Feosol] 325 mg PO QDAY 05/26/16 04/17/18 04/16/18 History Hyoscyamine Sulfate [Hyoscyamine 0.125 mg PO Q4H PRN 05/26/16 04/17/18 Unknown History Rapdis 0.125 mg] Lisinopril [Zestril] 5 mg PO QDAY 05/26/16 04/17/18 04/16/18 History Memantine HCl [Namenda Xr] 28 mg PO DAILY 05/26/16 04/17/18 04/16/18 History Promethazine [Phenergan TAB] 25 mg PO Q6HR PRN 05/26/16 04/17/18 Unknown History predniSONE [Deltasone] 5 mg PO QDAY 05/26/16 04/17/18 04/15/18 History traMADol [Ultram] 50 mg PO Q8HR PRN #10 tablet 05/26/16 04/17/18 Unknown Rx Bimatoprost [Lumigan 0.01%] 1 drop OP QPM 04/19/18 04/19/18 Unknown History Brimonidine/Timolol 0.2-0.5% 1 drops OP Q12H 04/19/18 04/19/18 Unknown History [Combigan 0.2-0.5%] Active Meds: Active Medications Acetaminophen (Tylenol) 650 mg PO Q4H PRN PRN Reason: Pain MILD(1-3)/Fever >100.5/MCNAMARA Last Admin: 04/19/18 20:57 Dose: 650 mg Documented by: Brimonidine/Timolol (Combigan 0.2-0.5%) 1 drops OU Q12HR [facility] Last Admin: 04/23/18 09:24 Dose: 1 drops Documented by: Enoxaparin Sodium (Lovenox) 30 mg SUB-Q QDAY [facility] Last Admin: 04/23/18 09:24 Dose: 30 mg Documented by: Hydralazine HCl (Apresoline) 100 mg PO TID [facility] Last Admin: 04/23/18 09:25 Dose: 100 mg Documented by: Hydromorphone HCl (Dilaudid) 0.5 mg IV Q3H PRN PRN Reason: Pain , Severe (7-10) Sodium Chloride (Nacl 0.9% 1000 Ml) 1,000 mls @ 75 mls/hr IV DIRECT [facility] Last Admin: 04/23/18 02:49 Dose: 75 mls/hr Documented by: Memantine (Namenda) 10 mg PO Q12HR [facility] Last Admin: 04/23/18 09:24 Dose: 10 mg Documented by: Metoclopramide HCl (Reglan) 10 mg IV Q6H PRN PRN Reason: Nausea And Vomiting Last Admin: 04/22/18 09:30 Dose: 10 mg Documented by: Miscellaneous Medication (Lumigan) 1 drop OU QHS [facility] Last Admin: 04/22/18 22:27 Dose: 1 drop Documented by: Ondansetron HCl (Zofran) 4 mg IV Q6H PRN PRN Reason: Nausea And Vomiting Last Admin: 04/21/18 11:05 Dose: 4 mg Documented by: Oxycodone/Acetaminophen (Percocet 5/325) 1 tab PO Q6H PRN PRN Reason: Pain, Moderate (4-6) Pantoprazole Sodium (Protonix) 40 mg PO QDAY [facility] Last Admin: 04/23/18 09:25 Dose: 40 mg Documented by: Sodium Chloride (Sodium Chloride Flush Syringe 10 Ml) 10 ml IV BID [facility] Last Admin: 04/23/18 09:25 Dose: 10 ml Documented by: Sodium Chloride (Sodium Chloride Flush Syringe 10 Ml) 10 ml IV PRN PRN PRN Reason: LINE FLUSH medications reviewed/updated as required Review of Systems - Review of Systems All systems: negative Gastrointestinal: nausea Exam - Constitutional Vital Signs: Temp Pulse Resp BP Pulse Ox 98.9 F 60 21 173/65 95 04/23/18 07:27 04/23/18 07:27 04/23/18 07:27 04/23/18 07:27 04/23/18 07:27 General appearance: no acute distress - Respiratory Respiratory: bilateral: CTA (anterior) - Cardiovascular Rhythm: regular Heart Sounds: Present: S1 & S2 - Gastrointestinal General gastrointestinal: Present: soft, non-distended, normal bowel sounds, other (+colostomy w/ non-bloody stool, +scars from previous surgeries) - Neurologic Neurological: oriented to person - Labs CBC & Chem 7: 04/20/18 06:26 04/23/18 10:55 Assessment and Plan 1.nausea 2.s/p antrectomy 3.s/p left hemicolectomy and colostomy 2/2 diverticulitis 2016 -Patient/family reports intermittent nausea that began approximately 3 weeks ago after eating a larger quantity of food with meals than usual. No vomiting or abd pain. Colostomy with non-bloody stool. -clinically, patient states nausea has now resolved. Tolerating diet. -no plans for scope at this time -continue daily PPI -small frequent meals -continue supportive care -patient okay to be d/c per GI standpoint with f/u in clinic
[2018-04-23 11:25] LABS: BUN/Creatinine Ratio 17; Blood Urea Nitrogen 17 mg/dL (7-17); Calcium 8.3 mg/dL (8.4-10.2); Hemolysis Index 19
[2018-04-23 13:50] VITALS: BP 95/71
--- NOTE | 2018-04-23 14:17 | Discharge Summary ---
Providers - Providers Date of Admission: 04/16/18 19:26 Attending physician: BETO MCQUEEN MD 04/22/18 11:54 Consult to Physician [CONS] Routine Comment: Consulting Provider: DARIANA FONTANEZ Physician Instructions: Reason For Exam: Persistent nausea Primary care physician: DEEPAK COTO Hospitalization Reason for admission: SYNCOPE Condition: Stable Hospital course: 88-year-old -[place] female with history of hypertension and dementia and being treated for bradycardia comes in for dizziness for 4 days. Patient has been feeling weak and dizzy and passing out. Patient is seeing [place] [facility]--Dr. SWANSON for management of bradycardia. Patient was given the option of pacemaker but the patient did not want it. 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 No chest pain. Patient was seen by cardiology and recommended outpatient event monitoring. This was discussed with family. Patient was seen by GI and noted improvement in symptoms of nausea and vomiting. She will continue outpatient GI eval. Bradycardia, - Secondary to sick sinus syndrome Atypical chest pain-secondary to GERD GERD Hypertension Hx of Nonischemic cardiomyopathy, resolving Dementia SIRS without organ dysfunction ANITA presume vasomotor nephropathy. Not present on admission Disposition: [id number] HOME [facility] Time spent for discharge: 35 mins Core Measure Documentation - Palliative Care Palliative Care/ Comfort Measures: Not Applicable - Core Measures Any of the following diagnoses?: none Exam - Physical Exam Narrative exam: VITAL SIGNS: Reviewed. GENERAL: The patient appeared well nourished and normally developed, otherwise lethargic. Vital signs as documented. HEAD: No signs of head trauma. EYES: Pupils are equal. EARS: Hearing grossly intact. MOUTH: Oropharynx is normal. NECK: No adenopathy, no JVD. CHEST: Chest with clear breath sounds bilaterally. No wheezes, rales, or rhonchi. CARDIAC: Regular rate and rhythm. S1 and S2, without murmurs, gallops, or rubs. VASCULAR: No Edema. Peripheral pulses normal and equal in all extremities. ABDOMEN: Soft, without detectable tenderness. No sign of distention. No rebound or guarding, and no masses palpated. Bowel Sounds normal. MUSCULOSKELETAL: Good range of motion of all major joints. Extremities without clubbing, cyanosis or edema. NEUROLOGIC EXAM: awake but lethargic and oriented x 3. No focal sensory or strength deficits. Speech normal. Follows commands. PSYCHIATRIC: Mood normal. SKIN: No rash or lesions. - Constitutional Vitals: Temp Pulse Resp BP Pulse Ox 98.1 F 59 L 20 95/71 97 04/23/18 13:48 04/23/18 13:48 04/23/18 13:48 04/23/18 13:48 04/23/18 13:48 Plan Activity: advance as tolerated, fall precautions Diet: low fat, per dietitian instruction, advance as tolerated (gi soft, small meals at interval) Follow up with: ROMARIO HER MD [Staff Physician] - 7 Days PRIMARY CARE, [Referring] - 3-5 Days MIN,DARIANA GILLIS MD [Staff Physician] - 7 Days Prescriptions: guaiFENesin/CODEINE [Robitussin AC] 5 ml PO TID PRN 5 Days oral.liqd PRN Reason: Cough
[2018-04-23] MEDS ORDERED: LUMIGAN OU SCH (21:00)
== END 2018-04-23 16:02 | disposition home health service (06) | DRG 308 ==
LOC: ED 14:58 → 4A 19:26 → 2B-ACE 04-22 17:16
PROVIDERS: ADMIT Internal Medicine; ATTEND Internal Medicine
DX: I49.5 Sick sinus syndrome (principal); N17.0 Acute kidney failure with tubular necrosis; E44.1 Mild protein-calorie malnutrition; R65.10 Systemic inflammatory response syndrome (SIRS) of non-infectious origin without acute organ dysfunction; K21.9 Gastro-esophageal reflux disease without esophagitis; I42.9 Cardiomyopathy, unspecified; I10 Essential (primary) hypertension; M19.90 Unspecified osteoarthritis, unspecified site; I45.10 Unspecified right bundle-branch block; G30.9 Alzheimer's disease, unspecified; F01.50 Vascular dementia, unspecified severity, without behavioral disturbance, psychotic disturbance, mood disturbance, and anxiety; H40.9 Unspecified glaucoma; R11.2 Nausea with vomiting, unspecified; Z90.49 Acquired absence of other specified parts of digestive tract; Z90.710 Acquired absence of both cervix and uterus; Z96.642 Presence of left artificial hip joint; Z68.25 Body mass index [BMI] 25.0-25.9, adult
CPT/HCPCS: 36415; 70450; 71045; 78452; 80048; 80053; 80061; 80076; 81001; 82962; 83036; 83735; 84439; 84443; 84484; 85025; 85610; 85730; 86140; 87040; 87086; 93005; 93010; 93017; 96374; 99291; G0378; A9502; J0696; J1650; J2405; J2765; J2785; J7030